=== PATIENT | female | born 1985 | race African-American/Black ===

== ENCOUNTER 2017-05-13 17:43 | Emergency (ER) | payer SELFPAY ==
[2017-05-13 18:45] LABS: #Eosinphils 0.1 thou/uL (0.0-0.7); #Lymphocytes 1.4 thou/uL (1.20-3.40); #Monocytes 0.6 thou/uL (0.11-0.59); #Neutrophils 11.6 thou/uL (1.40-6.50); %Basophils 0.2 % (0.0-1.0); %Eosinophils 0.4 % (0.0-10.0); %Lymphocytes 10.3 % (21.0-51.0); %Monocytes 4.6 % (0.0-10.0); Hematocrit 37.6 % (36.0-47.0); Mean Platelet Volume 8.1 fL (7.4-10.4); Red Blood Cell (RBC) Count 4.08 mill/uL (4.20-5.40); White Blood Cell (WBC) Count 13.8 thou/uL (4.8-10.8)
[2017-05-13 19:06] LABS: ALT (SGPT) 10 U/L (8-55); AST (SGOT) 18 U/L (5-34); Alkaline Phosphatase 65 U/L (40-150); Anion Gap 14 mmol/L (10-20); BUN (Urea Nitrogen) 16 mg/dL (7.0-18.7); Bilirubin, Total 0.6 mg/dL (0.2-1.2); Calc. Creatinine Clearance 0 mL/min (70-130); Calcium 9.8 mg/dL (7.8-10.44); Carbon Dioxide 23 mmol/L (22-29); Chloride 105 mmol/L (98-107); Estimated GFR-MDRD 90; Globulin 3.6 g/dL (2.4-3.5); Lipase 5 U/L (8-78); Protein, Total 8.2 g/dL (6.0-8.3)
[2017-05-13 19:49] LABS: Bilirubin Negative (Negative); Blood, Urine Negative (Negative); Glucose, Urine (Dipstick) Negative (Negative); Ketone, Urine 15 mg/dL (Negative); Nitrite Negative (Negative); Protein, Urine (Dipstick) Negative (Neg-Trace)
[2017-05-13 19:52] LABS: Bacteria/HPF None Seen HPF (None Seen); Hyaline Casts/LPF 0-3 HYALINE CAST LPF (0-3 Hyaline); RBC/HPF 0-3 HPF (0-3); Squamous Epithelial 0-3 HPF (0-3); WBC/HPF 21-50 HPF (0-3)
[2017-05-13] MEDS ORDERED: Ketorolac Tromethamine 30 MG/ML VIAL ONE (19:57)
[2017-05-13] MEDS ORDERED: Ondansetron HCl/PF 4 MG/2 ML Vial ONE (19:57)
--- NOTE | 2017-05-13 22:20 | CT ---
NONCONTRAST ABDOMEN AND PELVIS CT: Indication: Abdominal pain and vomiting. FINDINGS: Noncontrast imaging limits assessment of the solid abdominal organs, bowel, lymph nodes and vasculat ure. There is no evidence of urolithiasis or obstructive uropathy. There are calcifications of the abdome n and pelvis favoring phlebolith. No free air. Mild nonspecific free pelvic fluid is present. Imaged lung bases are clear. Probable bone island involving the proximal femur. There is a well circumscribed lucency involving the right aspect of the L4 vertebral segment which d emonstrates nonaggressive imaging features. IMPRESSION: 1. No evidence of urolithiasis or obstructive uropathy with scattered calcifications in the abdomen and pelvis, likely reflecting phleboliths in light of apparent hydroureteronephrosis. 2. Mild nonspecific free pelvic fluid. Correlate clinically. As necessary, follow up may obtained pelvis ultrasound. POS: [facility]
== END 2017-05-13 22:27 | disposition home or self-care (01) ==
LOC: ERS 17:43
DX: R10.9 Unspecified abdominal pain (principal); F17.210 Nicotine dependence, cigarettes, uncomplicated
CPT/HCPCS: 36415; 74176; 80053; 81003; 81015; 83690; 84703; 85025; 87086; 87480; 87491; 87510; 87591; 87660; 96361; 96374; 96375; J1885; J2405

== ENCOUNTER 2017-11-13 20:41 | Emergency (ER) | payer SELFPAY ==
[2017-11-13 21:19] LABS: Pregnancy Test - Urine (BHCG) POSITIVE (Negative); Pregu Control Background? CLEAR/WHITE (CLR/WHITE); Pregu Control Bar Appear? YES (CONTROL BAR); Specific Gravity 1.014 (1.002-1.036)
== END 2017-11-13 21:41 | disposition home or self-care (01) ==
LOC: ERS 20:41
DX: O21.9 Vomiting of pregnancy, unspecified (principal); O99.331 Smoking (tobacco) complicating pregnancy, first trimester; F17.210 Nicotine dependence, cigarettes, uncomplicated; Z71.6 Tobacco abuse counseling; Z3A.01 Less than 8 weeks gestation of pregnancy
CPT/HCPCS: 81025; 99406

== ENCOUNTER 2018-02-25 12:54 | Day surgery (SDC) | payer SELFPAY ==
[2018-02-25 13:38] VITALS: BMI 29.0
[2018-02-25 13:58] VITALS: BP 140/61; TEMP 98.9
[2018-02-25 15:25] LABS: Bilirubin Negative (Negative); Blood, Urine Negative (Negative); Clarity CLEAR (Clear); Glucose, Urine (Dipstick) Negative (Negative); Leukocyte Moderate (Negative); Nitrite Negative (Negative); Protein, Urine (Dipstick) Trace mg/dL (Neg-Trace); Specific Gravity, Urine 1.026 (1.002-1.036); pH, Urine 7.5 (5.0-9.0)
[2018-02-25 15:28] LABS: Bacteria/HPF None Seen HPF (None Seen); Hyaline Casts/LPF 4-6 HYALINE CAST LPF (0-3 Hyaline); Pathc Cast-AUWi Flag 0.72 (0-2.49); RBC/HPF 0-3 HPF (0-3); Squamous Epithelial 0-3 HPF (0-3); WBC/HPF 21-50 HPF (0-3)
[2018-02-25 15:42] LABS: Amphetamine Not Detected (NotDetected); Barbiturates Screen Not Detected (NotDetected); Benzodiazepine Screen Not Detected (NotDetected); Cocaine Metabolite Screen Not Detected (NotDetected); Medtox Control Line Valid? VALID (VALID); Medtox Reader # READER 1; Methadone Not Detected (NotDetected); Methamphetamine Not Detected (NotDetected); Opiate Screen Not Detected (NotDetected); Oxycodone Screen Not Detected (NotDetected); Phencyclidine (PCP) Not Detected (NotDetected); THC/Cannabinoid Screen Not Detected (NotDetected); Tricyclic Screen Not Detected (NotDetected)
[2018-02-25 16:42] LABS: Hemoglobin 9.7 g/dL (12.0-16.0); Mean Corpuscular HGB CONC 34.4 g/dL (32.0-36.0); Mean Corpuscular Hemoglobin 32.1 pg (27.0-31.0); Mean Corpuscular Volume 93.2 fL (78.0-98.0); Platelet Count 203 thou/uL (130-400); RBC Distribution Width 11.6 % (11.5-14.5); Red Blood Cell (RBC) Count 3.02 mill/uL (4.20-5.40); White Blood Cell (WBC) Count 7.5 thou/uL (4.8-10.8)
--- NOTE | 2018-02-25 16:50 | ULT ---
SONOGRAM OBSTETRIC COMPLETE 02/25/18 HISTORY: evaluation. Second trimester gestation. FINDINGS: Multiple transabdominal sonographic views of the gravid uterus show a single intrauterine gestation i n variable presentation. Grade I placenta is posterior. Amniotic fluid is within normal limits. Cervi x is closed and 4.4 cm. No gross intracranial abnormalities. Three vessel cord shows normal insertion . spine and kidneys are intact as visualized. Four chamber heart shows motion at 139 beats per minute. Measurements are as follows: Biparietal diameter 20 weeks, 5 days Head circumference 20 weeks, 6 days Abdominal circumference 20 weeks, 4 days Femur length 20 weeks, 2 days Estimated date of delivery based on today's sonogram is 07/11/18. Hadlock percentile 57%. IMPRESSION: Single viable intrauterine gestation with estimated gestational age based on today's sonogram of 20 w eeks, 4 days. POS: [facility]
[2018-02-25 17:05] LABS: ALT (SGPT) Less than 7 U/L (8-55); AST (SGOT) 13 U/L (5-34); Albumin 3.7 g/dL (3.5-5.0); Alkaline Phosphatase 52 U/L (40-150); Anion Gap 10 mmol/L (10-20); BUN (Urea Nitrogen) 5 mg/dL (7.0-18.7); Bilirubin, Total 0.4 mg/dL (0.2-1.2); Calc. Creatinine Clearance 181 mL/min (70-130); Calcium 9.1 mg/dL (7.8-10.44); Carbon Dioxide 24 mmol/L (22-29); Chloride 107 mmol/L (98-107); Estimated GFR-MDRD Greater than 90; Globulin 3.1 g/dL (2.4-3.5); Glucose 76 mg/dL (70-105); Potassium 3.5 mmol/L (3.5-5.1); Protein, Total 6.8 g/dL (6.0-8.3); Sodium 137 mmol/L (136-145)
[2018-02-25 17:32] LABS: HBSAg Index 0.18 S/CO (0-0.99); HIV (1/2) Antibody/Antigen Non-Reactive (NonReactive); HIV 1/2 INDEX 0.11 S/CO (<1.00); Hep B Surf Ag Non-Reactive S/CO (NonReactive)
--- NOTE | 2018-02-25 19:42 | HP ---
HISTORY OF PRESENT ILLNESS: The patient is a 33-year-old G8, P5 female with an intrauterine pregnanc y stated at around 20 weeks, who presents to Labor and Delivery with concerns about early delivery. The patient up to now has had little to no care, but is planning to establish care with Dr. Ray Roman. She reports a history of delivery with 4 of her previous pregnancies. The ear liest at 6 months due to premature rupture of membranes and subsequent prior pregnancies around 35-36 weeks, induced for other medical reasons. The patient reports that she has been having "[place] Hic ks" contractions. She also reports that she has been having headaches off and on nearly daily for th e last month or so and with light sensitivity and some nausea. She denies any headaches currently at the time of my evaluation. The patient did have an appointment this morning to see her primary OB, but was unable to keep that appointment and has a rescheduled appointment for Saturday. The patient de nies any fever, current headache, and chest pain. She does report some shortness of breath that she associates with her past history of smoking, but is not a significant from a day to day standpoint. The patient reports some nausea. She reports vomiting on occasion associated with the . Sh e denies diarrhea or constipation. She denies any new rashes. She does have some low back pain that she attributes to the . She denies any vaginal bleeding or leakage of fluid. She denies u rinary urgency or frequency. She does report some what she calls [place] Reza contractions. PAST MEDICAL HISTORY: History of pre-term deliveries. History of preeclampsia. PAST SURGICAL HISTORY: Negative. SOCIAL HISTORY: The patient reports rare use of alcohol early in the with the last drink i n October. She does report tobacco use, but has since discontinued use since connecting her children's asthma to tobacco. The patient denies any drug use. ALLERGIES: IODINE. MEDICATIONS: None. OB LABORATORY DATA: Not drawn yet. REVIEW OF SYSTEMS: Per HPI. PHYSICAL EXAMINATION: VITAL SIGNS: Blood pressure 131/66, heart rate of 83, respiratory rate of 20, satting 100% on room a ir, temperature 98.9. GENERAL: She appears to be in no acute distress. She is alert and oriented, cooperative and pleasan t to interact with. HEENT: Head is normocephalic, atraumatic. LUNGS: Clear to auscultation bilaterally. HEART: Regular rate and rhythm. ABDOMEN: Soft and nontender. EXTREMITIES: Nontender with minimal edema. There is no CVA tenderness. No paravertebral tenderness . She does have some SI joint tenderness on the left. Doppler heart tones were in the 140s. Tocometer did not show any contraction pattern. LABORATORY STUDIES: UA, she has a negative drug screen. Hepatitis B surface antigen is negative, HI V is nonreactive, blood type is A positive, antibody screen is negative. Urine shows moderate leukoc yte esterase with 21-50 white blood cells, 0-3 squamous cells and no bacteria seen. CBC shows a whit e count of 7.5, hemoglobin of 9.7, hematocrit 28.2, platelets of 203,000. CMP within normal limits. A ultrasound was also performed to establish dates and to get cervical length. The patient wa s noted to have a cervical length of 4.4 cm with a fetus measuring 20 weeks and 4 days, which is cons istent with her stated due date and 57th percentile for growth. Cervical exam per nursing staff is gold yousif. ASSESSMENT AND PLAN: The patient is a 33-year-old G8, P5 female, who presented with concerns of viraj y delivery and no care, was seen and evaluated and found to have a urinary tract infection. Her initial labs have been drawn GC chlamydia. These findings and results can be rev iewed by her primary OB, Dr. Ray Roman, when they have their first appointment on Saturday. The pat ient has been given reassurance. She has been provided with a prescription of Macrobid to be taken t wice a day for the next 7 days. The patient's headaches clinically sound like migraines, though she has nothing currently. She can follow up with her primary OB on managing this should they persist.
[2018-02-25 21:15] LABS: Syphilis Antibody Nonreactive (Nonreactive); Syphilis Antibody Index 0.07 S/CO (<1.00 Non-Reactive)
== END 2018-02-25 17:40 | disposition home or self-care (01) ==
LOC: L&D/OP 12:54
PROVIDERS: ATTEND Obstetrics & Gynecology
DX: O23.42 Unspecified infection of urinary tract in pregnancy, second trimester (principal); Z3A.20 20 weeks gestation of pregnancy; Z91.041 Radiographic dye allergy status; Z87.891 Personal history of nicotine dependence
CPT/HCPCS: 36415; 51701; 76805; 80053; 80306; 81001; 85027; 86762; 86780; 86850; 86900; 86901; 87340; 87389; 99283

== ENCOUNTER 2018-04-06 10:25 | Day surgery (SDC) | payer MEDICAID, OTHER, SELFPAY ==
[2018-04-06 11:31] VITALS: BMI 28.3
[2018-04-06 11:43] LABS: #Eosinphils 0.1 thou/uL (0.0-0.7); #Lymphocytes 1.5 thou/uL (1.20-3.40); #Monocytes 0.3 thou/uL (0.11-0.59); #Neutrophils 3.7 thou/uL (1.40-6.50); %Basophils 0.8 % (0.0-1.0); %Eosinophils 0.9 % (0.0-10.0); %Lymphocytes 26.3 % (21.0-51.0); %Monocytes 5.9 % (0.0-10.0); %Neutrophils 66.1 % (42.0-75.0); Hemoglobin 10.3 g/dL (12.0-16.0); Mean Corpuscular HGB CONC 34.7 g/dL (32.0-36.0); Mean Corpuscular Volume 92.2 fL (78.0-98.0); Mean Platelet Volume 7.5 fL (7.4-10.4); Platelet Count 210 thou/uL (130-400); Red Blood Cell (RBC) Count 3.22 mill/uL (4.20-5.40); White Blood Cell (WBC) Count 5.6 thou/uL (4.8-10.8)
[2018-04-06 12:05] LABS: ALT (SGPT) Less than 7 U/L (8-55); AST (SGOT) 13 U/L (5-34); Albumin 3.6 g/dL (3.5-5.0); Alkaline Phosphatase 57 U/L (40-150); Anion Gap 9 mmol/L (10-20); BUN (Urea Nitrogen) 7 mg/dL (7.0-18.7); Bilirubin, Total 0.5 mg/dL (0.2-1.2); Calc. Creatinine Clearance 145 mL/min (70-130); Calcium 8.8 mg/dL (7.8-10.44); Carbon Dioxide 24 mmol/L (22-29); Chloride 108 mmol/L (98-107); Estimated GFR-MDRD Greater than 90; Globulin 3.1 g/dL (2.4-3.5); Glucose 80 mg/dL (70-105); Potassium 3.1 mmol/L (3.5-5.1); Protein, Total 6.7 g/dL (6.0-8.3); Sodium 138 mmol/L (136-145)
--- NOTE | 2018-04-06 12:41 | PDOC.LDHP ---
Labor and Delivery H&P Chief complaint: other (Vaginal bleeding) HPI: 33 year old at 26.0 wks by reported LMP/1T sono that presents with complaints of bilateral leg cramping, contractions, and vaginal bleeding. Patient states she has been having bilateral leg cramping since yesterday. She also endorses intermittent contractions which she states are "false contractions ". Patient reports a one day history of vaginal spotting. She says the last several times she has used the restroom, she has noted blood on the toilet paper. She states the blood is faint red. Patient denies dysuria, fever, headache, vision changes. Patient has poor care. She was last seen in [place] during first trimester. Currently, she is homeless and lives in homeless custodial. She has no access to phone. Patient states she was supposed to initially follow with Dr. Roman, but she never showed up to her appointments. She is scheduled to follow with [facility] on 04/10/2018. ROS: General: Denies fever or chills HEENT: Denies headache or scotoma Resp: Denies shortness of breath or cough Card: Denies chest pain or palpitations. Endorses cardiac history of "hole in the heart" for which she has been told she will need surgery. : Denies dysuria. Endorses urinary frequency GI: Denies constipation or diarrhea. Current gestational age (weeks): 26 Due date: 07/13/18 Dating criteria: last menstrual period, first trimester ultrasound Grav: 9 Para: 5 OB History Details: 1. Hx of Pre-E in prior 2. Hx of GDM 3. Hx of gHTN 4. Poor care 5. Hx of UTI in current , not adequately treated 6. Hx of PTL Current complications: other (Has no PNC; currently has elevated BP) Past Medical History: 1. Heart abnormality patient describes as "hole in heart". Per patient, patient needs surgery on heart per Dr. Johnston. She refuses to follow up. 2. Homelessness: currently living in homeless custodial Current medications: none Previous surgical history: none Social history: none - Physical Exam Abnormal vital signs: BP 147/87 General: NAD, resting Lungs: CTAB Abdomen: gravid Extremeties: no edema FHT: category 1, variability present [place] contractions every: None - Assessment 33 year old at 26.0 wks by LMP/1T with ANDREEA of 07/13/2018 that presents with vaginal bleeding and bilateral lower extremity cramping 1. Vaginal bleeding - Described as blood on toilet paper when wiping - UA pending - OB ultrasound pending - fibronectin pending 2. Elevated BP with history of Pre-E and gHTN - BP 147/87 - Pre-E labs pending 3. Hx of Pre-E - Pre-E labs pending - BP 147/87 4. Hx of GDM - FBG 80 5. Hx of PTL - fibronectin pending <Emeli Dempsey - Last Filed: 04/06/18 13:00> - OB Labs Additional Labs: Laboratory Results - last 24 hr 04/06/18 04/06/18 04/06/18 11:35 11:35 11:45 WBC 5.6 RBC 3.22 L Hgb 10.3 L Hct 29.7 L MCV 92.2 MCH 32.0 H MCHC 34.7 RDW 11.0 L Plt Count 210 MPV 7.5 Neutrophils % 66.1 Lymphocytes % 26.3 Monocytes % 5.9 Eosinophils % 0.9 Basophils % 0.8 Neutrophils # 3.7 Lymphocytes # 1.5 Monocytes # 0.3 Eosinophils # 0.1 Basophils # 0.0 Sodium 138 Potassium 3.1 L Chloride 108 H Carbon Dioxide 24 Anion Gap 9 L BUN 7 Creatinine 0.65 Estimated GFR (MDRD) Greater than 90 Glucose 80 Calcium 8.8 Total Bilirubin 0.5 AST 13 ALT Less than 7 L Alkaline Phosphatase 57 Serum Total Protein 6.7 Albumin 3.6 Globulin 3.1 Albumin/Globulin Ratio 1.2 U Random Total Protein 14 Urine Creatinine 207.52 H Fibronectin 04/06/18 12:25 WBC RBC Hgb Hct MCV MCH MCHC RDW Plt Count MPV Neutrophils % Lymphocytes % Monocytes % Eosinophils % Basophils % Neutrophils # Lymphocytes # Monocytes # Eosinophils # Basophils # Sodium Potassium Chloride Carbon Dioxide Anion Gap BUN Creatinine Estimated GFR (MDRD) Glucose Calcium Total Bilirubin AST ALT Alkaline Phosphatase Serum Total Protein Albumin Globulin Albumin/Globulin Ratio U Random Total Protein Urine Creatinine Fibronectin Negative <Fartun Mayfield - Last Filed: 04/06/18 13:23> Allergies/Adverse Reactions: Allergies Allergy/AdvReac Type Severity Reaction Status Date / Time iodine Allergy Severe Anaphylaxis Verified 04/06/18 11:07 Attending Addendum - Attending Addendum Date/Time: 04/06/18 1320 I personally evaluated the patient and discussed the management with Dr. Dempsey. I agree with the History, Examination, Assessment and Plan documented above with any addition or exceptions noted below. US was cancelled, as she had one last month. FFN negative. PreE labs wnl. Low potassium (3.1) - will give PO replacement. D/c home with precautions. <Fartun Mayfield - Last Filed: 04/06/18 13:23>
[2018-04-06] MEDS ORDERED: Potassium Chloride 20 MEQ TAB PO SCH (13:00)
[2018-04-06 13:01] LABS: Creatinine, Urine 207.52 mg/dL (47-110)
[2018-04-06 13:11] LABS: FFN Internal QC Analyzer PASS (PASS); FFN Internal QC Cassette PASS (PASS); Fetal Fibronectin Negative (Negative)
[2018-04-06 14:03] LABS: Bilirubin Negative (Negative); Blood, Urine Negative (Negative); Clarity CLEAR (Clear); Glucose, Urine (Dipstick) Negative (Negative); Leukocyte Moderate (Negative); Nitrite Negative (Negative); Protein, Urine (Dipstick) Negative (Neg-Trace); Specific Gravity, Urine 1.022 (1.002-1.036)
[2018-04-06 14:06] LABS: Bacteria/HPF 1+ HPF (None Seen); Pathc Cast-AUWi Flag 0.29 (0-2.49); Squamous Epithelial 0-3 HPF (0-3)
[2018-04-06 14:21] LABS: Hyaline Casts/LPF 4-6 HYALINE CAST LPF (0-3 Hyaline); RBC/HPF 0-3 HPF (0-3)
[2018-04-06 14:22] LABS: Trichomonas/HPF 1+ HPF (None Seen)
== END 2018-04-06 13:29 | disposition home or self-care (01) ==
LOC: L&D/OP 10:25
PROVIDERS: ATTEND Family Medicine
DX: O46.92 Antepartum hemorrhage, unspecified, second trimester (principal); O99.89 Other specified diseases and conditions complicating pregnancy, childbirth and the puerperium; Z3A.26 26 weeks gestation of pregnancy
CPT/HCPCS: 36415; 80053; 81001; 82570; 82731; 84156; 85025; 99284

== ENCOUNTER 2018-05-05 14:55 | Day surgery (SDC) | payer OTHER ==
[2018-05-05 15:48] VITALS: BP 128/80; TEMP 98; BMI 32.1
--- NOTE | 2018-05-05 17:17 | PDOC.FPROB ---
Addendum entered and electronically signed by Lloyd Andrade DO 05/05/18 18: 09: Upper Level Addendum: ILloyd, agree with the above history, PE, A /P with exceptions noted below: 33 yr @ 30.3 wk by 20.4 wk sono (ANDREEA 07/11/18) with inconsistent care presents for vaginal spotting and foul smelling discharge and abdominal cramping for last month. Pt was previously evaluated and treated for UTI and trich two weeks ago for 7 days; however, has not taken medications regularly. Reports good FM, denies LOF and contractions. Reports some bright blood when she wipes, vaginal discharge and occasional cramping. 1) sIUP: - pos movement, reactive NST - recommend OP f/u with primary OB provider 2) Vaginal Bleeding/Discharge: -possibly 2/2 trich vs uti; however, significant prolapsed internal hemorrhoids with possibly external hemorrhoids as well could be causing blood tinged toilet paper. Will check VP3, UA, GCC. Spec exam revealed erythematous, closed cervix with thick, white discharge and no bleeding present. Fundal placenta by bs US. If pos VP3 give 2gm flagyl X1 and f/u OP. 3) h/o pre-e: normotensive and currently asymptomatic, op workup for pre-e negative, recommend f/u with PCP, cont daily asa 4) Poor care: pt has h/o homelessness, HepC and quant gold negative. Pt reports she is staying with a friend and feels safe with the friend she is staying with. Original Note: FMR OB H&P: HPI - History of Present Illness Chief Complaint: Vaginal spotting, cramping, foul discharge Indentification: 33 yr @ 30.3 wk by 20.4 wk sono (ANDREEA 07/11/18) History of Present Illness: 33 yr @ 30.3 wk by 20.4 wk sono (ANDREEA 07/11/18) with inconsistent care (homeless) presents for vaginal spotting and foul smelling discharge and abdominal cramping for last month. Patient has been seen here for similar symptoms 1 month ago, and had similar complaint and seen by PCP at [facility] 2 weeks ago. Pt states her foul smelling discharge has gotten worse, and notices spotting from her vagina when wiping. Pt states she also has hemorrhoids and has been very constipated with her Fe pills. No urinary symptoms. No WHITAKER currently. No changes in vision. No nausea/vom. Baby moving well. Denies contractions. Denies LOF. Reports swelling in hands and feet. Pt states that she missed her clinic appointment, pt stated her doctor wasn't there, so she went to the ED to be seen. We called clinic and confirmed that she was late for her appointment. She was diagnosed with trich 2 weeks ago and treated with metronidazole. Pt states she just finished her 7 day course. Primary Care Physician: Dr. 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 Reports smoking infrequently since she was 6, couldn't quantify how many packs per day or week. Reports quitting with each . Denies alcohol or drug use. - Family History Family History: Asthma son DM2 - father HTN - father, mother FMR OB H&P: Medications - Current Home Medications: Medication Instructions Recorded Confirmed Type Vit,Calc76/Iron/Folic 1 tablet PO DAILY 02/25/18 05/05/18 History [Prenatabs Rx Tablet] Allergies/Adverse Reactions: Allergies Allergy/AdvReac Type Severity Reaction Status Date / Time iodine Allergy Severe Anaphylaxis Verified 05/05/18 15:48 FMR OB H&P: ROS - Review of Systems General: reports: weight/appetite/sleep changes (decreased appetite). denies: fever/chills Eyes: reports: scotomas. denies: eye pain, vision changes ENT: denies: nasal congestion, sinus pain/pressure Cardiovascular: reports: palpitation, edema. denies: chest pain Respiratory: reports: shortness of breath. denies: cough, congestion Gastrointestinal: reports: abdominal pain, cramping, nausea, vomiting, constipation, bright red blood, other (dark stools with iron pills). denies: diarrhea Genitourinary (Female): reports: incontinence (stress incontinence). denies: dysuria, hematuria Musculoskeletal: reports: stiffness (leg). denies: arthritis/arthralgias Neurologic: reports: headache (frequent headaches, not new). denies: numbness, weakness Integumentary: denies: itching, rash, lesions Endocrine: reports: heat intolerance Psychological: reports: depression, anxiety (previously treated for depression and anxiety in previous ) FMR OB H&P: Vital Signs - Maternal Vital signs: Vital Signs - First Documented Temp Pulse Resp BP 98.0 F 79 18 128/80 05/05/18 15:19 05/05/18 15:19 05/05/18 15:19 05/05/18 15:19 - Heart Tones Baseline: 135 Variability: moderate Deceleration: absent Category: category 1 [place] contractions every: none FMR OB H&P: Physical Exam - Physical Exam General: NAD, awake, alert and oriented HEENT: normocephalic and atraumatic, PERRLA, grossly normal hearing, normal nasal mucosa, oropharynx clear Neck: supple, no LAD Heart: RRR, normal S1/S2, no murmurs/rubs/gallops, pulses present, no edema General: CTAB, no respiratory distress, good air movement, no wheezing Abdomen: soft, gravid, bowel sound present Neurological: no focal deficit Skin: no rash, good tugor, capillary refill <2 seconds Lymphatic: no unusual bruising or bleeding, no purpura, no petechia Psychiatric: intact recent and remote memory, normal mood and affect - Pelvic Exam Vulva: normal hair distribution, appropriate candice stage Deviation from normal: pedunculated mass posterior to left labia, prolapsed internal hemorrhoids Cervix: no masses, no lesions, no blood Deviation from normal: foul-smelling yellow discharge. +white clumps in discharge SVE: 0/25%/-3 FMR OB H&P: A/P - Problem List (1) [place] vaginitis Status: Acute Code(s): B37.3 - CANDIDIASIS OF VULVA AND VAGINA (2) Foul smelling vaginal discharge Status: Acute Code(s): N89.8 - OTHER SPECIFIED NONINFLAMMATORY DISORDERS OF VAGINA (3) Vaginal spotting Status: Acute Code(s): N93.9 - ABNORMAL UTERINE AND VAGINAL BLEEDING, UNSPECIFIED (4) Status: Acute Discussion: Date/Time: 05/05/181708 33 yr @ 30.3 wk by 20.4 wk [place] (ANDREEA 07/11/18) with inconsistent care (homeless) presents for possible STI. Concern for STI -Recently treated for trichomonas, states she took full course but missed a few days here and there -foul smelly discharge, hx of STIs. -sterile speculum exam: white chunky discharge on vaginal exam, smelly yellow discharge, no bleeding from cervix, prominent hemorrhoids -VP3, UA, GCC, UDS pending -Treat accordingly sIUP -Fundal placenta on bed side ultrasound -SVE: closed, thick, high -Reactive NST -Baby moving well, no contractions, no LOF -Hx of Pre-E: aspirin daily Poor PNC -Late to care, missed appointment today. Pt is homeless, living with a friend currently. -quant gold and Hep c negative per clinic records -Did not get formal anatomy US that mentioned at her last clinic visit note, per patient Hx of Pre-E -Pressure not elevated today. Recent work up for Pre-E was negative. Denies WHITAKER currently, no swelling in hands/feet This H&P was discussed with Dr. Davila who agree with the above documentation and plan. Attending Addendum - Attending Addendum Date/Time: 05/05/181715 I personally evaluated the patient and discussed the management with Dr. Duran and Dr. Andrade I agree with the History, Examination, Assessment and Plan documented above with any addition or exceptions noted below. 33 yr @ 30.3 wk by 20.4 wk [place] presents for evaluation of vaginal discharge. 1. vaginal d/c: Recently dx with trich. Incomplete treatment per patient. VP3, GC, CT ordered. VP3 negative. UA negative. 2. External/internal hemrrhoids: Follow up. No evidence of thrombosis. Topical treatment needed. 3. Incomplete/poor care 4. Homeless: Staying with friend. Feels safe. Risk factor labs negative. CM consult needed. 5. hx of PTD: Too late for 17-OHP. No contractions on monitor. 6. hx of preE: Asymptomatic. BP normotensive. Recommend daily ASA. Ok to d/c to home. Needs follow up with PCP this week. Mirna
[2018-05-05 18:53] LABS: Bilirubin Negative (Negative); Blood, Urine Negative (Negative); Clarity CLEAR (Clear); Glucose, Urine (Dipstick) Negative (Negative); Leukocyte Small (Negative); Nitrite Negative (Negative); Protein, Urine (Dipstick) Negative (Neg-Trace); Specific Gravity, Urine 1.023 (1.002-1.036)
[2018-05-05 18:56] LABS: Bacteria/HPF None Seen HPF (None Seen); Hyaline Casts/LPF 4-6 HYALINE CAST LPF (0-3 Hyaline); Pathc Cast-AUWi Flag 0.72 (0-2.49); RBC/HPF 0-3 HPF (0-3); Squamous Epithelial 0-3 HPF (0-3)
[2018-05-05 19:03] LABS: Amphetamine Not Detected (NotDetected); Barbiturates Screen Not Detected (NotDetected); Benzodiazepine Screen Not Detected (NotDetected); Cocaine Metabolite Screen Not Detected (NotDetected); Medtox Control Line Valid? VALID (VALID); Medtox Reader # READER 4; Methadone Not Detected (NotDetected); Methamphetamine Not Detected (NotDetected); Opiate Screen Not Detected (NotDetected); Oxycodone Screen Not Detected (NotDetected); Phencyclidine (PCP) Not Detected (NotDetected); THC/Cannabinoid Screen Not Detected (NotDetected); Tricyclic Screen Not Detected (NotDetected)
[2018-05-06 22:45] LABS: Chlamydia by PCR Not Detected (NotDetected); GC by PCR Not Detected (NotDetected)
== END 2018-05-05 19:35 | disposition home health service (06) ==
LOC: L&D/OP 14:55
PROVIDERS: ATTEND Obstetrics & Gynecology
DX: O99.89 Other specified diseases and conditions complicating pregnancy, childbirth and the puerperium (principal); N89.8 Other specified noninflammatory disorders of vagina; O26.853 Spotting complicating pregnancy, third trimester; O99.613 Diseases of the digestive system complicating pregnancy, third trimester; K64.8 Other hemorrhoids; O98.813 Other maternal infectious and parasitic diseases complicating pregnancy, third trimester; B37.3 Candidiasis of vulva and vagina; O09.33 Supervision of pregnancy with insufficient antenatal care, third trimester; O24.419 Gestational diabetes mellitus in pregnancy, unspecified control; Z79.899 Other long term (current) drug therapy; Z91.041 Radiographic dye allergy status; Z91.14 Patient's other noncompliance with medication regimen; Z3A.30 30 weeks gestation of pregnancy
CPT/HCPCS: 76815; 80306; 81003; 81015; 87480; 87491; 87510; 87591; 87660; 99285

== ENCOUNTER 2018-05-14 17:29 | Day surgery (SDC) | payer OTHER ==
[2018-05-14 18:46] VITALS: BP 139/77; TEMP 99.1
[2018-05-14 18:47] VITALS: BMI 31.4
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
[2018-05-14 19:56] LABS: #Eosinphils 0.1 thou/uL (0.0-0.7); #Lymphocytes 1.7 thou/uL (1.20-3.40); #Monocytes 0.4 thou/uL (0.11-0.59); #Neutrophils 4.7 thou/uL (1.40-6.50); %Basophils 0.3 % (0.0-1.0); %Eosinophils 0.7 % (0.0-10.0); %Monocytes 5.9 % (0.0-10.0); Hemoglobin 9.7 g/dL (12.0-16.0); Mean Corpuscular HGB CONC 33.6 g/dL (32.0-36.0); Mean Corpuscular Volume 92.3 fL (78.0-98.0); Platelet Count 167 thou/uL (130-400); Red Blood Cell (RBC) Count 3.15 mill/uL (4.20-5.40); White Blood Cell (WBC) Count 6.9 thou/uL (4.8-10.8)
[2018-05-14 20:40] LABS: ALT (SGPT) Less than 7 U/L (8-55); Albumin 3.5 g/dL (3.5-5.0); Alkaline Phosphatase 59 U/L (40-150); Anion Gap 12 mmol/L (10-20); BUN (Urea Nitrogen) 7 mg/dL (7.0-18.7); Bilirubin, Total 0.7 mg/dL (0.2-1.2); Calc. Creatinine Clearance 180 mL/min (70-130); Calcium 8.9 mg/dL (7.8-10.44); Carbon Dioxide 22 mmol/L (22-29); Chloride 106 mmol/L (98-107); Estimated GFR-MDRD Greater than 90; Globulin 3.1 g/dL (2.4-3.5); Glucose 71 mg/dL (70-105); Potassium 3.3 mmol/L (3.5-5.1); Protein, Total 6.6 g/dL (6.0-8.3); Sodium 137 mmol/L (136-145); Uric Acid 4.1 mg/dL (2.6-6.0)
--- NOTE | 2018-05-14 21:12 | ULT ---
OB ULTRASOUND BIOPHYSICAL PROFILE ULTRASOUND 05/14/18 CLINICAL HISTORY: Evaluation of anatomy and history of maternal chronic hypertension. FINDINGS: Live intrauterine gestation is present with cardiac activity documented at 128 beats per minute . The fetus is demonstrated in a cephalic lie and placenta is located primarily in a posterior locati on without evidence of previa. NORBERT is calculated at 11.2 cm. On the basis of ultrasound imaging, halle mated gestational age is 32 weeks, 5 days placing estimated date of delivery by ultrasound at 8. Estimated weight is 2059 grams placing the fetus at the 75th percentile by Hadlock criteria. BIOPHYSICAL PROFILE: tone - 2/2. breathing - 2/2. movement - 2/2. Amniotic fluid - 2/2. Biophysical profile score 8/8. Dedicated anatomic survey not performed. IMPRESSION: 1. Single live intrauterine gestation with estimated gestational age by ultrasound at 32 weeks, 5 days. 2. Biophysical profile score 8/8. 3. As necessary, continued imaging following may be obtained. POS: [place]
[2018-05-14] MEDS ORDERED: Acetaminophen 500 MG TAB PO SCH (22:30)
[2018-05-14] MEDS ORDERED: Potassium Chloride 20 MEQ TAB PO SCH (23:00)
[2018-05-14 23:01] LABS: Creatinine, Urine 137.96 mg/dL (47-110); Protein, Urine Random Quant Less than 10 mg/dL (1-14)
[2018-05-14 23:02] LABS: AST (SGOT) 17 U/L (5-34)
[2018-05-14] MEDS ORDERED: Betamet Acet/Betamet Na Ph 30 MG/5 ML VIAL ONE (23:09)
[2018-05-14] MEDS ORDERED: Betamet Acet/Betamet Na Ph 30 MG/5 ML VIAL IM SCH (23:30)
== END 2018-05-14 23:50 | disposition home or self-care (01) ==
LOC: L&D/OP 17:29
PROVIDERS: ATTEND Emergency Medicine
DX: O99.89 Other specified diseases and conditions complicating pregnancy, childbirth and the puerperium (principal); R01.1 Cardiac murmur, unspecified; R03.0 Elevated blood-pressure reading, without diagnosis of hypertension; Z91.041 Radiographic dye allergy status; O99.013 Anemia complicating pregnancy, third trimester; D64.9 Anemia, unspecified; Z3A.31 31 weeks gestation of pregnancy
CPT/HCPCS: 36415; 76805; 76819; 80053; 82570; 84156; 84550; 85025; 96372; 99284; J0702

== ENCOUNTER 2018-05-15 22:10 | Day surgery (SDC) | payer OTHER ==
[2018-05-15 22:42] VITALS: BMI 31.4
[2018-05-15] MEDS ORDERED: Betamet Acet/Betamet Na Ph 30 MG/5 ML VIAL IM SCH (22:45)
== END 2018-05-15 23:00 | disposition home or self-care (01) ==
LOC: L&D/OP 22:10
PROVIDERS: ATTEND Family Medicine
DX: Z29.8 Encounter for other specified prophylactic measures (principal); Z91.041 Radiographic dye allergy status; Z79.82 Long term (current) use of aspirin; Z79.899 Other long term (current) drug therapy
CPT/HCPCS: 96372

== ENCOUNTER 2018-05-19 15:17 | Observation (INO) | payer OTHER ==
[2018-05-19 16:07] VITALS: BMI 26.6
[2018-05-19] MEDS ORDERED: Acetaminophen 500 MG TAB PO SCH (17:00)
--- NOTE | 2018-05-19 17:05 | PDOC.FPROB ---
FMR OB H&P: HPI - History of Present Illness Chief Complaint: Chest pain, Back pain Indentification: 33 year old History of Present Illness: 33 year old at 32.3 wks by 20.4 wk [place] presents with chest pain since around 6:00 AM. She states the chest pain is located on the right side of the chest. It does not radiate. It is not associated with diaphoresis or nausea. Patient states she has not had this pain previously. She does report being anxious. She had contractions all night until about 6:00 AM. The contractions resolved except when walking. Patient also endorses lower back pain and pelvic pain. She states the back pain is worse when standing. Patient denies dysuria, vaginal bleeding, vaginal discharge, or LoF. She has had intermittent contractions throughout . Primary Care Physician: MARCIN Dempsey FMR OB H&P: Current - Care : 9 Para: [id number] Gestational age: 32.3 wks Due date: 07/11/2018 Dating Criteria: 20.4 wk sono - OB Labs Antibody Screen: negative HIV: negative RPR: negative HepBsAg: negative Rubella: immune Gonorrhea: negative Chlamydia: negative GBS: unknown Additional labs: Trichomonas positive: no GABRIELLA available FMR OB H&P: History - OB History OB History: Hx Pre-E, Hx gHTN, Hx GDM Anemia of , gHTN in current , Trichomonas infection with no GABRIELLA - Social History Social History: Homeless, recently living in correction. She does not care for all of her living children. All but her youngest live with other family members. FMR OB H&P: Medications - Current Home Medications: Medication Instructions Recorded Confirmed Type Aspirin [Low Dose Aspirin EC] 81 mg PO DAILY 05/19/18 05/19/18 History Ferrous Sulfate 325 mg PO BID 05/19/18 05/19/18 History Vit,Calc76/Iron/Folic 1 tablet PO DAILY 05/19/18 05/19/18 History [Pnv 29-1 Tablet] Allergies/Adverse Reactions: Allergies Allergy/AdvReac Type Severity Reaction Status Date / Time iodine Allergy Severe Anaphylaxis Verified 05/19/18 16:40 FMR OB H&P: ROS - Review of Systems General: reports: fatigue. denies: fever/chills, weight/appetite/sleep changes Eyes: denies: vision changes, scotomas ENT: denies: nasal congestion, rhinorrhea, sinus pain/pressure, ear pain, sore throat Cardiovascular: reports: chest pain. denies: palpitation, edema, orthopnea Respiratory: reports: shortness of breath, exercise intolerance. denies: cough Gastrointestinal: denies: abdominal pain, indigestion, nausea, vomiting, diarrhea, constipation, bright red blood Genitourinary (Female): reports: polyuria, contractions, vaginal pressure. denies: incontinence, dysuria, vaginal discharge, vaginal bleeding Musculoskeletal: denies: pain, stiffness, tenderness, redness, swelling Neurologic: denies: numbness, syncope, weakness, loss of counsciousness Integumentary: denies: rash, lesions Endocrine: reports: polyuria Hematologic/Lymphatic: denies: prolonged or excessive bleeding Psychological: reports: anxiety FMR OB H&P: Vital Signs - Maternal Vital signs: BP 141/80 on presentation HR nml Afebrile - Heart Tones Baseline: 140 Variability: moderate Acceleration: present Deceleration: absent Category: category 1 [place] contractions every: None FMR OB H&P: Physical Exam - Physical Exam General: NAD, awake, alert and oriented HEENT: normocephalic and atraumatic, MMM, conjunctiva clear, no scleral icterus , grossly normal vision, grossly normal hearing Neck: supple Heart: RRR Deviation from normal: 3/6 systolic blowing murmur best heard over pulmonic region General: CTAB, no respiratory distress, no wheezing Abdomen: soft, gravid, non-tender Musculoskeletal: pulses present Skin: no rash, good tugor, capillary refill <2 seconds Lymphatic: no unusual bruising or bleeding, no purpura Psychiatric: intact recent and remote memory, good judgement and insight, normal mood and affect FMR OB H&P: A/P - Problem List (1) Gestational HTN Current Visit: Yes Status: Acute Code(s): O13.9 - GESTATIONAL HTN W/O SIGNIFICANT PROTEINURIA, UNSP TRIMESTER Assessment and Plan: Elevated BP on several admissions and in clinic Patient asymptomatic BP on presentation to L&D 141/80, BP uptrended to SBP 180, but came down to 150' s with no intervention Most recent SBP 148 Concern for Pre-E superimposed on cHTN; Pre-E labs normal including spot urine protein/creatinine Will admit to L&D for observation; will obtain 24 hour urine protein Will start patient on low dose labetolol BID for better BP control Patient without contractions; history of deliveries - has received steroids (2) Systolic murmur Current Visit: No Status: Acute Code(s): R01.1 - CARDIAC MURMUR, UNSPECIFIED Assessment and Plan: Etiology unknown Will call Dr. Oh office tomorrow morning for records EKG performed in ED for chest pain; NSR Chest pain resolved with PO fluids and tylenol Disposition: Observation in L&D Discussion: Date/Time: 05/19/18 4180 This H&P was discussed with [Enrique] and [Deonte] who agree with the above documentation and plan. Signature: Emeli Dempsey DO PGY-2 Attending Addendum - Attending Addendum Date/Time: 05/19/18 9294 I personally evaluated the patient and discussed the management with Dr. Dempsey I agree with the History, Examination, Assessment and Plan documented above with any addition or exceptions noted below. Symptoms largely resolved since admission. Old entries in EMR show she received steroids X 2 last week. Systolic murmur noted, but does not appear to be hemodynamically significant at this time. Prior echo shows no VSD/ASD. Recommend labetolol, cardiology records & PreE workup. N.B. Patient is essentially homeless. Unclear who is caring for her other children. software engineer web services involvement will be important. Likely CPS post- . Date/Time: 05/20/18 9367 I personally evaluated the patient and discussed the management with Dr. Zamudio at time of admission yesterday. I agree with the History, Examination, Assessment and Plan documented above with any addition or exceptions noted below.
[2018-05-19 17:35] LABS: #Basophils 0.1 thou/uL (0.0-0.2); #Eosinphils 0.1 thou/uL (0.0-0.7); #Lymphocytes 1.8 thou/uL (1.20-3.40); #Monocytes 0.7 thou/uL (0.11-0.59); #Neutrophils 4.5 thou/uL (1.40-6.50); %Basophils 0.8 % (0.0-1.0); %Eosinophils 1.1 % (0.0-10.0); %Lymphocytes 25.6 % (21.0-51.0); %Neutrophils 62.6 % (42.0-75.0); Mean Corpuscular HGB CONC 33.1 g/dL (32.0-36.0); Mean Corpuscular Hemoglobin 30.8 pg (27.0-31.0); Mean Platelet Volume 7.4 fL (7.4-10.4); Platelet Count 231 thou/uL (130-400); Red Blood Cell (RBC) Count 3.23 mill/uL (4.20-5.40); White Blood Cell (WBC) Count 7.2 thou/uL (4.8-10.8)
[2018-05-19 17:56] LABS: ALT (SGPT) 9 U/L (8-55); AST (SGOT) 13 U/L (5-34); Albumin 3.3 g/dL (3.5-5.0); Alkaline Phosphatase 61 U/L (40-150); Anion Gap 10 mmol/L (10-20); BUN (Urea Nitrogen) 7 mg/dL (7.0-18.7); Bilirubin, Total 0.4 mg/dL (0.2-1.2); Calc. Creatinine Clearance 155 mL/min (70-130); Calcium 9.2 mg/dL (7.8-10.44); Carbon Dioxide 25 mmol/L (22-29); Chloride 107 mmol/L (98-107); Estimated GFR-MDRD Greater than 90; Globulin 2.9 g/dL (2.4-3.5); Glucose 94 mg/dL (70-105); Potassium 3.5 mmol/L (3.5-5.1); Protein, Total 6.2 g/dL (6.0-8.3); Sodium 138 mmol/L (136-145); Uric Acid 3.5 mg/dL (2.6-6.0)
[2018-05-19 18:36] LABS: Creatinine, Urine 104.98 mg/dL (47-110); Protein, Urine Random Quant Less than 10 mg/dL (1-14)
[2018-05-19] MEDS ORDERED: Ondansetron PF 4 MG/2 ML Vial IVP PRN (20:21)
[2018-05-19] MEDS ORDERED: Docusate 100 MG CAP PO PRN (20:21)
--- NOTE | 2018-05-19 20:33 | PDOC.EVN ---
Event Note - Event Note Event Note: 05/19/18 at appx 18:15 On reevaluation, patient is comfortable and chest pain free. She states she is less anxious. She denies vision changes, headache, RUQ pain currently. SBP elevated to 180, which downtrended to 160, and then 150's without any intervention CMP nml, CBC shows mild anemia which is stable, Upr/Ucr 0.095 Due to consistently elevated BP, decision was made to admit patient overnight for observation and collect 24 urine protein Will start low dose of labetolol BID and continue to monitor BP q1h Staff to notify of BP >160/110 Most recent BP at 20:15 was 148/89 Patient continues to be asymptomatic Patient was notified of plans and was agreeable with management The above was also discussed with attending, Dr. Clemons <Emeli Dempsey - Last Filed: 05/19/18 20:27> Attending Addendum - Attending Addendum Date/Time: 05/19/18 3408 I personally evaluated the patient and discussed the management with Dr. Dempsey. Would favor starting labatalol at this time. Obtain records from [facility]. <Anatoly Clemons - Last Filed: 05/19/18 21:56>
[2018-05-19 21:25] VITALS: BP 157/93
[2018-05-19] MEDS: Labetalol 100 MG TAB PO SCH (21:25)
[2018-05-19 21:37] LABS: Amphetamine Not Detected (NotDetected); Barbiturates Screen Not Detected (NotDetected); Benzodiazepine Screen Not Detected (NotDetected); Cocaine Metabolite Screen Not Detected (NotDetected); Medtox Control Line Valid? VALID (VALID); Medtox Reader # READER 1; Methadone Not Detected (NotDetected); Methamphetamine Not Detected (NotDetected); Opiate Screen Not Detected (NotDetected); Oxycodone Screen Not Detected (NotDetected); Phencyclidine (PCP) Not Detected (NotDetected); THC/Cannabinoid Screen Not Detected (NotDetected); Tricyclic Screen Not Detected (NotDetected)
[2018-05-20] MEDS: Acetaminophen 500 MG TAB PO PRN ×2 (00:31→19:57)
--- NOTE | 2018-05-20 07:43 | PDOC.EVN ---
Event Note - Event Note Event Note: 05/20/2018 at 7:34 AM Patient asleep in bed resting comfortably. No complaints overnight. BP 150/86 (range from 135/76 to 165/81); labetolol started last night, patient has received one dose of 100 mg labetolol Pulse 69 RR 16 General: resting comfortably. Cardio: RRR. 3/6 blowing holosystolic murmur heard best at pulmonic region Resp: Clear to auscultation bilaterally. No acute distress. Ext: No cyanosis or edema. Pulses full and equal bilaterally. A/P: Gestational HTN - Pre-E workup negative - 24 hour urine protein being collected - 100 mg labetolol BID; first dose given last night - Continue to monitor BP (trend as above); high of 165/81 which resolved - FHT's reassuring - Patient will need weekly testing; consider BPP here in hospital due to concerns for poor follow up Hx of PTL - s/p 2 doses of steroids - sporadic contractions noted on strip, but nothing regular. Patient not currently feeling contractions - No cervical check performed yet Hx of GDM - No evidence of GDM during this Hx of Pre-E - Workup for Pre-E negative - 24 hour urine protein pending Anemia of - Continue iron supplementation Dispo: Plan for d/c home today pending 24 hour urine protein and possible BPP. Emeli Dempsey, PGY-2 <Emeli Dempsey - Last Filed: 05/20/18 07:33> Attending Addendum - Attending Addendum Date/Time: 05/20/18 1043 I personally evaluated the patient and discussed the management with Dr. Lopez. I agree with the History, Examination, Assessment and Plan documented above with any addition or exceptions noted below. <José Antonio Nunez - Last Filed: 05/20/18 10:43>
[2018-05-20] MEDS: Labetalol 100 MG TAB PO SCH (09:15)
[2018-05-20 09:53] VITALS: TEMP 97.3
[2018-05-20 18:11] LABS: Collection Duration 24 hrs; Urine Total Volume 2600 mL (600-1600)
[2018-05-20 18:37] LABS: Protein, Urine Less than 10 mg/dL (1-14)
--- NOTE | 2018-05-20 20:46 | ULT ---
ADDENDUM TO OB ULTRASOUND: Doppler study of the umbilical artery was performed on this exam. The umbilical artery doppler value was recorded at 20 to 27 cm/s. POS: [facility]
--- NOTE | 2018-05-20 21:13 | PDOC.EVN ---
Event Note - Event Note Event Note: 24hr urine protein <10, no concerns on US. FHTs category 1. Pt discharged to [facility] with prescription for labetalol 100mg BID and instructed to follow up with Dr Dempsey in clinic.
--- NOTE | 2018-05-21 12:43 | DIS-2 ---
DATE OF ADMISSION: 05/19/2018 DATE OF DISCHARGE: 05/20/2015 ADMITTING ATTENDING: Dr. José Antonio Nunez. DISCHARGE ATTENDING: Anatoly Clemons, RESIDENT: Dr. Emeli Dempsey. CONSULTS: None. IMAGING OR PROCEDURES: An obstetric ultrasound was performed. Doppler study of the umbilical artery was recorded at 20-27 cm per second. A single intrauterine is identified. Gestational age by ultrasound is 33 weeks and 2 days. Biometry measurements showed a BPD of 32 weeks and 4 days, head circumference showed 34 weeks and 4 days. Abdominal circumference at 32 weeks and 0 days. Femur length showed 32 weeks and 2 days. Estimated weight was 1985 grams. Amniotic fluid was noted to be low normal at 8.4 cm. heart rate was 150 beats per minute. Placenta was fundal. Presentation was vertex. Limited anatomy was performed. The visualized intracranial contents, stomach, kidneys, cord insertion, bladder, and 3-vessel cord appeared unremarkable. Cervical length was reported at 3.6 cm. PRIMARY DIAGNOSES: 1. Single intrauterine . 2. Gestational hypertension. 3. History of labor in prior . 4. History of preeclampsia in prior . 5. History of gestational hypertension in prior . 6. History of gestational diabetes in prior . DISCHARGE MEDICATIONS: 1. Labetalol 100 mg b.i.d. 2. Aspirin 81 mg p.o. daily. 3. Ferrous sulfate 325 mg p.o. b.i.d. 4. vitamin 1 tablet p.o. daily. 5. Docusate 100 mg p.o. b.i.d. p.r.n. for constipation. HISTORY OF PRESENT ILLNESS/HOSPITAL COURSE: This is a 33-year-old female that presented at 32 and 3 weeks by 20.4 wk sono with complaint of chest pain that started around 6:00 a.m. The patient stated the pain was located on the right side of the chest, it did not radiate. It was not associated with diaphoresis or nausea. The patient states that she has not had this pain previously. She does endorse being anxious. The patient stated she had contractions all night, which persisted to about 6:00 a.m. The contractions resolved except when walking. The patient also endorses lower back and pelvic pain. The patient states the back pain is worse when standing. She denies dysuria, vaginal bleeding, vaginal discharge, loss of fluid. Patient has had intermittent contractions throughout her . The patient remained stable throughout the course of her hospital stay. Her chest pain resolved after administration of 1000 mg of Tylenol and with time. However, the patient was noted to have blood pressures with systolic blood pressure as high as 180. The blood pressures did downtrend; however, the patient was remaining in the 140s to 150 range. She has a history of preeclampsia and has been worked up during this for preeclampsia. Preeclampsia labs were ordered to include CBC, CMP, and a urine protein- creatinine ratio. All labs were noted to be normal. However, due to the persistent nature of the elevated blood pressures, it was decided to observe the patient and collect a 24-hour urine protein to ensure 24-hour urine protein correlated with the urine spot protein-creatinine ratio. Additionally, during this hospitalization, the patient was diagnosed with gestational hypertension as she has had several documented blood pressures above 140/90 on different occasions. Since blood pressures are ranging above 160/110 range on occasion, it was decided to start patient on a low dose of labetalol for better blood pressure control with a goal of not going below 140/98 to risk poor perfusion to fetus as this is what fetus is likely used to at this point in the . The patient agreed to the medications. Throughout the course of her hospital stay, her blood pressure never swati above 160/110. Patient remained asymptomatic in regard to her chest pain as well as headache, nausea, vomiting, right upper quadrant pain, edema, shortness of breath, or vision changes. Of note, the patient does have a systolic murmur. She reportedly has seen Dr. Johnston in the past for which records have been requested. We have been unsuccessful in obtaining these records. Of note, EKG was performed in the emergency department, the patient was noted to have a normal sinus rhythm. Attempts were made to call medical record to Dr. Johnston's office and attempts to review the records and confirm patient's diagnosis. A 24-hour urine protein was collected, it was noted to be below 300. Thus, the patient was discharged home without a diagnosis of preeclampsia. She was advised to continue taking her blood pressure medications twice a day as prescribed. She was also advised to see Dr. Stef Hawkins at [facility] on Saturday of this coming week as she needs a very close followup due to her past obstetric history and current problems. Patient stated that she is agreeable to scheduling an appointment. The patient also had a Case Management consult during this hospitalization. She states that she has individuals to help her look after her babies and she is now having a place to stay. Case management was concerned about baby going home with the mother after the delivery. DISPOSITION: Stable. DISCHARGE INSTRUCTIONS: 1. Location: Home. 2. Activity: As tolerated. 3. Diet: Regular. 4. Followup: The patient is to follow up with [facility] this Saturday at her convenience. Patient also has an appointment scheduled for the following Saturday, which she says she will also attempt. The patient will need an anatomy ultrasound was only performed, still limited anatomy ultrasound here during this hospitalization. The patient will need weekly BPP, NSTs, which need to be scheduled as well. [facility]
--- NOTE | 2018-05-21 15:07 | ULT ---
ADDENDUM TO OB ULTRASOUND: Doppler study of the umbilical artery was performed on this exam. The umbilical artery doppler value was recorded at 20 to 27 cm/s.
--- NOTE | 2018-05-31 10:31 | EKG ---
Test Reason : CP Blood Pressure : / mmHG Vent. Rate : 079 BPM Atrial Rate : 079 BPM P-R Int : 168 ms QRS Dur : 084 ms QT Int : 386 ms P-R-T Axes : 005 -21 019 degrees QTc Int : 442 ms Normal sinus rhythm Moderate voltage criteria for LVH, may be normal variant Borderline ECG Confirmed by MARK FERMIN ([id number]), staff editor DG CASTILLO ([id number]) on 05/31/2018 10:31:18 AM Referred By: Confirmed By:MARK FERMIN
== END 2018-05-20 21:40 | disposition home health service (06) ==
LOC: ERS 15:17 → L&D/OP 15:17 → EDSTATUS 15:54 → INTOOBSV 20:59 → L&D 20:59
PROVIDERS: ADMIT Family Medicine; ATTEND Family Medicine
DX: O13.3 Gestational [pregnancy-induced] hypertension without significant proteinuria, third trimester (principal); O99.89 Other specified diseases and conditions complicating pregnancy, childbirth and the puerperium; R01.1 Cardiac murmur, unspecified; R07.9 Chest pain, unspecified; M54.5 Low back pain; R10.2 Pelvic and perineal pain; O99.013 Anemia complicating pregnancy, third trimester; D64.9 Anemia, unspecified; O98.313 Other infections with a predominantly sexual mode of transmission complicating pregnancy, third trimester; A59.9 Trichomoniasis, unspecified; Z3A.32 32 weeks gestation of pregnancy; Z79.82 Long term (current) use of aspirin; Z79.899 Other long term (current) drug therapy; Z91.041 Radiographic dye allergy status; Z91.013 Allergy to seafood; Z59.0 Homelessness
CPT/HCPCS: 36415; 59025; 76700; 76816; 80053; 80306; 82570; 84156; 84550; 85025; 93005; 99285; G0378

== ENCOUNTER 2018-05-28 19:44 | Day surgery (SDC) | payer OTHER ==
[2018-05-28 20:14] VITALS: BP 125/76; TEMP 99.1; BMI 31.4
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
[2018-05-28] MEDS ORDERED: Acetaminophen 325 MG TAB PO PRN (21:18)
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
--- NOTE | 2018-05-30 13:52 | ULT ---
DUPLEX UMBILICAL CORD EVALUATION: 05/28/18 Resistive index of the umbilical artery is 0.5 to 0.6. Systolic to diastolic ratio is 1.9 to 2.6. This is well within normal range. Good color and spectral doppler flow are documented within the umbilical artery. IMPRESSION: Normal umbilical doppler sonogram.
== END 2018-05-28 23:59 | disposition home or self-care (01) ==
LOC: L&D/OP 19:44
PROVIDERS: ATTEND Student in an Organized Health Care Education/Training Program
DX: O99.89 Other specified diseases and conditions complicating pregnancy, childbirth and the puerperium (principal); R10.9 Unspecified abdominal pain; R01.1 Cardiac murmur, unspecified; O13.3 Gestational [pregnancy-induced] hypertension without significant proteinuria, third trimester; O14.93 Unspecified pre-eclampsia, third trimester; O99.013 Anemia complicating pregnancy, third trimester; D64.9 Anemia, unspecified; Z3A.33 33 weeks gestation of pregnancy; Z79.82 Long term (current) use of aspirin; Z79.899 Other long term (current) drug therapy; Z91.041 Radiographic dye allergy status; Z91.14 Patient's other noncompliance with medication regimen; Z59.0 Homelessness; W22.8XXA Striking against or struck by other objects, initial encounter
CPT/HCPCS: 76816; 76819; 93976; 99283

== ENCOUNTER 2018-06-19 14:36 | Inpatient (IN) | payer OTHER ==
--- NOTE | 2018-06-19 17:44 | PDOC.FPROB ---
FMR OB H&P: HPI - History of Present Illness Chief Complaint: Medically indicated IOL for gHTN Indentification: 33 year old at 36.6 wks History of Present Illness: 33 year old at 36.6 wks presents for medically indicated IOL for uncontrolled gHTN. Patient has poor PNC. She has not attended many of her appointments. Patient was placed on medication for BP during one of her hospitalizations as her pressures have been uncontrolled; however, patient stopped taking labetolol shortly after starting the medication due to supposed side effects. Patient denies any vaginal bleeding, vaginal discharge, LoF, or contractions. She endorses good movement. Primary Care Physician: MARCIN Dempsey FMR OB H&P: Current - Care : 9 Para: [id number] Gestational age: 36.6 wks Due date: 07/11/2018 Dating Criteria: 20.4 wk sono - OB Labs Blood type: A RH: positive Antibody Screen: negative HIV: negative RPR: negative HepBsAg: negative Rubella: immune Urine drug screen: negative Gonorrhea: negative Chlamydia: negative 1 hour gtt: 98 GBS: unknown (Poor PNC. Swab obtained in clinic today. Will not have results prior to IOL.) FMR OB H&P: History - Past Medical History PMH: cHTN? - unconfirmed Homelessness - OB History OB History: Uncontrolled gHTN vs. cHTN (presented to care >20 wks) Anemia of Hx of Pre-E in 2 prior pregnancies Hx of GDM in prior Social issues affecting care Hx of trichomonas infection in current Hx of PTD x4 (earliest at 24 wks) - Surgical History Sx History: None - Social History Social History: Denies alcohol, tobacco, or drug use. FMR OB H&P: Medications - Current Home Medications: Medication Instructions Recorded Confirmed Type Acetaminophen [Tylenol Extra 500 mg PO Q6H PRN tab 05/20/18 06/19/18 Rx Strength] Allergies/Adverse Reactions: Allergies Allergy/AdvReac Type Severity Reaction Status Date / Time Fish Containing Products Allergy Severe Anaphylaxis Verified 06/19/18 22:52 iodine Allergy Severe Anaphylaxis Verified 06/19/18 22:51 FMR OB H&P: ROS - Review of Systems General: reports: weight/appetite/sleep changes (States she has not been sleeping well for the last few days.). denies: fever/chills Eyes: denies: eye pain, vision changes ENT: denies: nasal congestion, rhinorrhea Cardiovascular: denies: chest pain, palpitation Respiratory: denies: cough, shortness of breath Gastrointestinal: denies: abdominal pain, indigestion Genitourinary (Female): denies: incontinence, dysuria Musculoskeletal: denies: pain, stiffness, tenderness Neurologic: denies: numbness, syncope Integumentary: denies: itching, rash Psychological: denies: depression, anxiety FMR OB H&P: Vital Signs - Maternal Vital signs: BP158/90 HR 88 RR 14 - Heart Tones Baseline: 150 Variability: moderate Acceleration: absent Deceleration: absent Category: category 1 [place] contractions every: 3-4 FMR OB H&P: Physical Exam - Physical Exam General: NAD, awake, alert and oriented HEENT: normocephalic and atraumatic, EOMI, MMM, grossly normal hearing Neck: FROM, no JVD Chest: non-tender to palpation, no lesions Heart: RRR, normal S1/S2, other (Systolic murmur best heard at lower left sternal border) General: CTAB, no respiratory distress, good air movement Abdomen: soft, gravid, non-tender, other (US reveals vertex position) Musculoskeletal: pulses present, FROM in all four extremities Neurological: cranial nerves II through XII intact Skin: no rash, good tugor Psychiatric: intact recent and remote memory, good judgement and insight - Pelvic Exam SVE: 1.5/75/-3 Patten score: 4-5 FMR OB H&P: Results - Imaging Imaging: Bedside US shows vertex position FMR OB H&P: A/P - Problem List (1) Encounter for induction of labor Current Visit: No Status: Acute Code(s): Z34.90 - ENCNTR FOR SUPRVSN OF NORMAL , UNSP, UNSP TRIMESTER (2) 36 to 37 weeks gestation of Current Visit: No Status: Acute Code(s): [id number] - (3) Gestational HTN Current Visit: No Status: Acute Code(s): O13.9 - GESTATIONAL HTN W/O SIGNIFICANT PROTEINURIA, UNSP TRIMESTER Qualifiers: Trimester: third trimester Qualified Code(s): O13.3 - Gestational [ -induced] hypertension without significant proteinuria, third trimester (4) History of gestational diabetes mellitus (GDM) in prior , currently Current Visit: No Status: Acute Code(s): O09.299 - SUPRVSN OF PREG W POOR REPRODCTV OR OBSTET HISTORY, UNSP TRI; Z86.32 - PERSONAL HISTORY OF GESTATIONAL DIABETES (5) Homelessness Current Visit: No Status: Acute Code(s): Z59.0 - HOMELESSNESS (6) History of pre-eclampsia in prior , currently Current Visit: No Status: Chronic Code(s): O09.299 - SUPRVSN OF PREG W POOR REPRODCTV OR OBSTET HISTORY, UNSP TRI (7) History of delivery, currently Current Visit: No Status: Chronic Code(s): O09.219 - SUPRVSN OF PREG W HISTORY OF PRE-TERM LABOR, UNSP TRIMESTER (8) Systolic murmur Current Visit: No Status: Chronic Code(s): R01.1 - CARDIAC MURMUR, UNSPECIFIED Disposition: 33 year old at 36.6 wks presents for medically indicated IOL for uncontrolled gHTN 1. Encounter for medically indicated induction of labor - Uncontrolled gHTN - at 36.6 wks; 9:00 PM induction, current contractions q3-4 minutes. We will reassess in 3-4 hours for need for cytotec - Cervical check in clinic , Initial check on admission - Pitocin for additional augmentation when indicated - monitoring 2. Uncontrolled gHTN vs cHTN - Presented to care >20 wks - BP today in clinic 153/67; patient has been previously on medication but did not take it as prescribed - Pre-E workups thus far in have been negative - Obtain Pre-E labs on admission - Monitor BP - Monitor for s/s of pre-E - monitoring 3. Hx of Pre-E during prior pregnancies - x2 prior pregnancies - Pre-E workups have been negative to date - Obtain pre-E labs on admission - Monitor for s/s of pre-E 4. Hx of GDM in prior - 1h GTT nml at 98 5. Hx of PTD - was not a candidate for OH-17 progesterone due to late presentation 6. Anemia of - Patient has not been taking iron Dispo: Stable. Admit to L&D for IOL. Discussion: Date/Time: 06/19/181740 This H&P was discussed with Dr. Brink who agrees with the above documentation and plan. Signature: Emeli Dempsey, DO PGY-2
[2018-06-19] MEDS ORDERED: Ondansetron PF 4 MG/2 ML Vial IVP PRN (22:29)
[2018-06-19] MEDS ORDERED: Docusate 100 MG CAP PO PRN (22:29)
[2018-06-19] MEDS ORDERED: Promethazine HCl 25 MG/ML VIAL IM PRN (22:29)
[2018-06-19] MEDS ORDERED: Lidocaine 1% (PF) 30 ML VIAL SC PRN (22:29)
[2018-06-19] MEDS ORDERED: Acetaminophen 500 MG TAB PO PRN (22:29)
[2018-06-19] MEDS ORDERED: Ibuprofen 800 MG TAB PO PRN (22:29)
[2018-06-19] MEDS ORDERED: NS / Oxytocin 40 units/1000ml 1,000 ML IV PRN (22:29)
[2018-06-19 23:05] VITALS: BMI 38.4
[2018-06-19] MEDS: Lactated Ringer's 1,000 ML IV SCH (23:15)
[2018-06-19 23:41] LABS: Hemoglobin 10.5 g/dL (12.0-16.0); Mean Corpuscular HGB CONC 32.4 g/dL (32.0-36.0); Mean Corpuscular Hemoglobin 29.5 pg (27.0-31.0); Mean Platelet Volume 7.4 fL (7.4-10.4); Platelet Count 245 thou/uL (130-400); RBC Distribution Width 12.8 % (11.5-14.5); Red Blood Cell (RBC) Count 3.55 mill/uL (4.20-5.40); White Blood Cell (WBC) Count 7.9 thou/uL (4.8-10.8)
[2018-06-19 23:59] LABS: ALT (SGPT) 9 U/L (8-55); AST (SGOT) 17 U/L (5-34); Albumin 3.5 g/dL (3.5-5.0); Alkaline Phosphatase 99 U/L (40-150); Anion Gap 12 mmol/L (10-20); BUN (Urea Nitrogen) 6 mg/dL (7.0-18.7); Bilirubin, Total 0.4 mg/dL (0.2-1.2); Calc. Creatinine Clearance 197 mL/min (70-130); Calcium 9.1 mg/dL (7.8-10.44); Carbon Dioxide 22 mmol/L (22-29); Chloride 108 mmol/L (98-107); Estimated GFR-MDRD Greater than 90; Globulin 2.9 g/dL (2.4-3.5); Glucose 94 mg/dL (70-105); Potassium 3.7 mmol/L (3.5-5.1); Protein, Total 6.4 g/dL (6.0-8.3); Sodium 138 mmol/L (136-145)
[2018-06-20 00:12] LABS: HBSAg Index 0.21 S/CO (0-0.99); Hep B Surf Ag Non-Reactive S/CO (NonReactive); Syphilis Antibody Nonreactive (Nonreactive); Syphilis Antibody Index 0.06 S/CO (<1.00 Non-Reactive)
[2018-06-20] MEDS ORDERED: NIFEdipine 10 MG CAP PO SCH ×3 (03:45→08:45)
[2018-06-20] MEDS: NS w/ Oxytocin 10 units 500 ML IV SCH ×2 (03:55→17:13)
[2018-06-20] MEDS: Misoprostol 100 MCG TAB VAG SCH ×4 (04:16→07:44)
--- NOTE | 2018-06-20 04:23 | PDOC.LDPN ---
Labor & Delivery Progress Note - Subjective Subjective: comfortable, no concerns - Objective Vital signs reviewed and normal: yes General: NAD, resting Uterine fundus: non tender SVE: /-3 Dilation: 2 Station: -3 FHT: category 1, variability present (moderate) [place] contractions every: absent - Assessment (1) Encounter for induction of labor Code(s): Z34.90 - ENCNTR FOR SUPRVSN OF NORMAL , UNSP, UNSP TRIMESTER Current Visit: No Status: Acute (2) 36 to 37 weeks gestation of Code(s): [id number] - Current Visit: No Status: Acute (3) Gestational HTN Code(s): O13.9 - GESTATIONAL HTN W/O SIGNIFICANT PROTEINURIA, UNSP TRIMESTER Current Visit: No Status: Acute Qualifiers: Trimester: third trimester Qualified Code(s): O13.3 - Gestational [ -induced] hypertension without significant proteinuria, third trimester (4) History of gestational diabetes mellitus (GDM) in prior , currently Code(s): O09.299 - SUPRVSN OF PREG W POOR REPRODCTV OR OBSTET HISTORY, UNSP TRI ; Z86.32 - PERSONAL HISTORY OF GESTATIONAL DIABETES Current Visit: No Status : Acute (5) Homelessness Code(s): Z59.0 - HOMELESSNESS Current Visit: No Status: Acute (6) History of pre-eclampsia in prior , currently Code(s): O09.299 - SUPRVSN OF PREG W POOR REPRODCTV OR OBSTET HISTORY, UNSP TRI Current Visit: No Status: Chronic (7) History of delivery, currently Code(s): O09.219 - SUPRVSN OF PREG W HISTORY OF PRE-TERM LABOR, UNSP TRIMESTER Current Visit: No Status: Chronic (8) Systolic murmur Code(s): R01.1 - CARDIAC MURMUR, UNSPECIFIED Current Visit: No Status: Chronic Plan: continue plan of care -: 33 year old at 36.6 wks presents for medically indicated IOL for uncontrolled gHTN 1. Encounter for medically indicated induction of labor - Uncontrolled gHTN - at 36.7 wks; Contractions were q3-4 minutes and have now disipated. We are starting pitocin - Cervical check in clinic , Initial check on admission 1/75/-3, Latest check /-3 - monitoring 2. Uncontrolled gHTN vs cHTN - Presented to care >20 wks - BP today in clinic 153/67; patient has been previously on medication but did not take it as prescribed - Pre-E workups thus far in have been negative - Obtain Pre-E labs on admission - SBP has ranged from 130s-170s, diastolic from 70s-110s. We are starting gHTN protocol using nifedepine - Monitor for s/s of pre-E - monitoring 3. Hx of Pre-E during prior pregnancies - x2 prior pregnancies - Pre-E workups have been negative to date - Obtain pre-E labs on admission - Monitor for s/s of pre-E 4. Hx of GDM in prior - 1h GTT nml at 98 5. Hx of PTD - was not a candidate for OH-17 progesterone due to late presentation 6. Anemia of - Patient has not been taking iron
[2018-06-20 04:36] LABS: Creatinine, Urine 216.81 mg/dL (47-110)
[2018-06-20 04:38] LABS: Amphetamine Not Detected (NotDetected); Barbiturates Screen Not Detected (NotDetected); Benzodiazepine Screen Not Detected (NotDetected); Cocaine Metabolite Screen Not Detected (NotDetected); Medtox Control Line Valid? VALID (VALID); Medtox Reader # READER 4; Methadone Not Detected (NotDetected); Methamphetamine Not Detected (NotDetected); Opiate Screen Not Detected (NotDetected); Oxycodone Screen Not Detected (NotDetected); Phencyclidine (PCP) Not Detected (NotDetected); THC/Cannabinoid Screen Not Detected (NotDetected); Tricyclic Screen Not Detected (NotDetected)
[2018-06-20] MEDS: Lactated Ringer's 1,000 ML IV SCH ×3 (05:59→19:58)
--- NOTE | 2018-06-20 09:33 | PDOC.LDPN ---
Labor & Delivery Progress Note - Subjective Subjective: comfortable - Objective Abnormal vital signs: BP 160/102 General: NAD Uterine fundus: non tender Dilation: 2 Effacement: 90% Station: -3 FHT: category 1 [place] contractions every: 3min - Assessment (1) 36 to 37 weeks gestation of Code(s): [id number] - Current Visit: No Status: Acute (2) [place] vaginitis Code(s): B37.3 - CANDIDIASIS OF VULVA AND VAGINA Current Visit: No Status: Acute (3) Encounter for induction of labor Code(s): Z34.90 - ENCNTR FOR SUPRVSN OF NORMAL , UNSP, UNSP TRIMESTER Current Visit: No Status: Acute (4) Gestational HTN Code(s): O13.9 - GESTATIONAL HTN W/O SIGNIFICANT PROTEINURIA, UNSP TRIMESTER Current Visit: No Status: Acute Qualifiers: Trimester: third trimester Qualified Code(s): O13.3 - Gestational [ -induced] hypertension without significant proteinuria, third trimester (5) History of gestational diabetes mellitus (GDM) in prior , currently Code(s): O09.299 - SUPRVSN OF PREG W POOR REPRODCTV OR OBSTET HISTORY, UNSP TRI ; Z86.32 - PERSONAL HISTORY OF GESTATIONAL DIABETES Current Visit: No Status : Acute (6) -induced benign hypertension in third trimester Code(s): O13.3 - GESTATIONAL HTN W/O SIGNIFICANT PROTEINURIA, THIRD TRIMESTER Current Visit: No Status: Acute (7) History of pre-eclampsia in prior , currently Code(s): O09.299 - SUPRVSN OF PREG W POOR REPRODCTV OR OBSTET HISTORY, UNSP TRI Current Visit: No Status: Chronic (8) History of delivery, currently Code(s): O09.219 - SUPRVSN OF PREG W HISTORY OF PRE-TERM LABOR, UNSP TRIMESTER Current Visit: No Status: Chronic (9) Systolic murmur Code(s): R01.1 - CARDIAC MURMUR, UNSPECIFIED Current Visit: No Status: Chronic Plan: continue plan of care, labor augmentation -: 33 year old at 36.7 wks presents for medically indicated IOL for uncontrolled gHTN sIUP, medically indicated induction of labor - Uncontrolled gHTN - Cervical check /-3 @0915, Initial check on admission /-3 - Currently on Pitocin - monitoring Cat 1 - Continue serial cervical checks Uncontrolled gHTN vs cHTN - Presented to care >20 wks - Previously on medication but did not take it as prescribed - BPs elevated overnight, s/p Nifedipine x1 - Will start Mg & Mg protocol Hx of Pre-E during prior pregnancies - x2 prior pregnancies - Pre-E workups have been negative in clinic Hx of GDM in prior - 1h GTT nml at 98 Hx of PTD - was not a candidate for OH-17 progesterone due to late presentation Anemia of - Patient has not been taking iron
[2018-06-20] MEDS ORDERED: Fentanyl 4 mcg/Bup 0.1% Cadd 100 ML ONE (10:24)
[2018-06-20] MEDS ORDERED: Calcium Gluc 4.6 MEQ/10 ML (100 MG/ML) SLOW IVP PRN (11:16)
[2018-06-20] MEDS ORDERED: Magnesium Sulfate 20 GM/WATER 500 ML BAG IVPB SCH (11:30)
[2018-06-20] MEDS: Magnesium Sulfate 20 gm/500 ml 20 GM/500 ML BAG IVPB SCH ×2 (12:19→21:43)
[2018-06-20] MEDS ORDERED: NIFEdipine XL 30 MG TAB PO SCH (12:30)
--- NOTE | 2018-06-20 14:03 | PDOC.LDPN ---
Labor & Delivery Progress Note - Subjective Subjective: comfortable - Objective Vital signs reviewed and normal: yes General: NAD Uterine fundus: non tender Dilation: 2 cm Effacement: 50% Station: -3 FHT: category 1 (130 bpm/moderate/+ accels, no decels) [place] contractions every: 4 - Assessment (1) 36 to 37 weeks gestation of Code(s): [id number] - Current Visit: No Status: Acute (2) [place] vaginitis Code(s): B37.3 - CANDIDIASIS OF VULVA AND VAGINA Current Visit: No Status: Acute (3) Encounter for induction of labor Code(s): Z34.90 - ENCNTR FOR SUPRVSN OF NORMAL , UNSP, UNSP TRIMESTER Current Visit: No Status: Acute (4) Gestational HTN Code(s): O13.9 - GESTATIONAL HTN W/O SIGNIFICANT PROTEINURIA, UNSP TRIMESTER Current Visit: No Status: Acute Qualifiers: Trimester: third trimester Qualified Code(s): O13.3 - Gestational [ -induced] hypertension without significant proteinuria, third trimester (5) Homelessness Code(s): Z59.0 - HOMELESSNESS Current Visit: No Status: Acute (6) -induced benign hypertension in third trimester Code(s): O13.3 - GESTATIONAL HTN W/O SIGNIFICANT PROTEINURIA, THIRD TRIMESTER Current Visit: No Status: Acute (7) History of pre-eclampsia in prior , currently Code(s): O09.299 - SUPRVSN OF PREG W POOR REPRODCTV OR OBSTET HISTORY, UNSP TRI Current Visit: No Status: Chronic (8) History of delivery, currently Code(s): O09.219 - SUPRVSN OF PREG W HISTORY OF PRE-TERM LABOR, UNSP TRIMESTER Current Visit: No Status: Chronic -: 33HD @ 36.7w presents here for IOL for uncontrolled gHTN sIUP - continue pitocin with expectant management Uncontrolled gHTN vs cHTN - Presented to care >20 wks - Previously on medication but did not take it as prescribed - BPs elevated overnight, s/p Nifedipine x2 with appropriate response Hx of Pre-E during prior pregnancies - x2 prior pregnancies - Pre-E workups have been negative in clinic Hx of PTD - was not a candidate for OH-17 progesterone due to late presentation
[2018-06-20] MEDS ORDERED: Carboprost 250 MCG/ML AMP ONE (17:08)
[2018-06-20] MEDS ORDERED: Naloxone HCl 0.4 mg/ml Vial IVP PRN ×2 (17:16)
[2018-06-20] MEDS ORDERED: Eucerin (Mineral Oil/Petrolatum,White) 30 gm Jar TOP PRN (17:16)
[2018-06-20] MEDS ORDERED: Promethazine HCl 25 MG/ML VIAL IM PRN (17:16)
[2018-06-20] MEDS ORDERED: ePHEDrine/0.9% NaCl/PF SYRINGE 50 mg/10 ml SLOW IVP PRN (17:16)
[2018-06-20] MEDS ORDERED: Ondansetron PF 4 MG/2 ML Vial IVP PRN (17:16)
[2018-06-20] MEDS ORDERED: Lactated Ringer's 500 ML IV PRN (17:16)
[2018-06-20] MEDS ORDERED: Fentanyl 4 mcg/Bupivacaine 0.1% Cassette 100 ML EPIDURAL SCH (17:30)
[2018-06-20] MEDS ORDERED: Communication Order-Pharmacy FS SCH (17:30)
[2018-06-20] MEDS ORDERED: Sodium Chloride 0.9% 300 ML IV SCH (18:45)
[2018-06-20] MEDS ORDERED: Sodium Chloride 0.9% 1,000 ML IV SCH (18:45)
[2018-06-20] MEDS ORDERED: Bupivacaine/Epinephrine 0.25% 30 ML VIAL ONE (20:00)
[2018-06-20] MEDS: diphenhydrAMINE 50 MG/ML VIAL IVP PRN (20:51)
--- NOTE | 2018-06-20 22:26 | PDOC.LDPN ---
Labor & Delivery Progress Note - Subjective Subjective: comfortable - Objective Abnormal vital signs: BP's stable, but still elevated with SBP >140 General: NAD, resting Uterine fundus: non tender SVE: 21:32 Dilation: 8 Effacement: 100% Station: 0 FHT: category 1, variability present [place] contractions every: q5 min - Assessment (1) Encounter for induction of labor Code(s): Z34.90 - ENCNTR FOR SUPRVSN OF NORMAL , UNSP, UNSP TRIMESTER Current Visit: No Status: Acute (2) 36 to 37 weeks gestation of Code(s): [id number] - Current Visit: No Status: Acute (3) Gestational HTN Code(s): O13.9 - GESTATIONAL HTN W/O SIGNIFICANT PROTEINURIA, UNSP TRIMESTER Current Visit: No Status: Acute Qualifiers: Trimester: third trimester Qualified Code(s): O13.3 - Gestational [ -induced] hypertension without significant proteinuria, third trimester (4) History of gestational diabetes mellitus (GDM) in prior , currently Code(s): O09.299 - SUPRVSN OF PREG W POOR REPRODCTV OR OBSTET HISTORY, UNSP TRI ; Z86.32 - PERSONAL HISTORY OF GESTATIONAL DIABETES Current Visit: No Status : Acute (5) Homelessness Code(s): Z59.0 - HOMELESSNESS Current Visit: No Status: Acute (6) History of pre-eclampsia in prior , currently Code(s): O09.299 - SUPRVSN OF PREG W POOR REPRODCTV OR OBSTET HISTORY, UNSP TRI Current Visit: No Status: Chronic (7) History of delivery, currently Code(s): O09.219 - SUPRVSN OF PREG W HISTORY OF PRE-TERM LABOR, UNSP TRIMESTER Current Visit: No Status: Chronic (8) Systolic murmur Code(s): R01.1 - CARDIAC MURMUR, UNSPECIFIED Current Visit: No Status: Chronic Plan: continue plan of care, labor augmentation, pitocin for augmentation -: Patient on Mg. DTR's 2+. Adequate urine output. BP's have not been elevated above 160/110 mmHg since last check. No signs/symptoms of Mg toxicity. Patient comfortable and resting. Continue Mg. Patient on pitocin. Continue pitocin. IUPC in place. Will be prepared for PPH should it occur based on risk factors. Anticipate vaginal delivery. Emeli Dempsey, DO PGY-2
[2018-06-20] MEDS: Misoprostol 200 MCG TAB ONE ×3 (23:40→23:43)
[2018-06-20] MEDS ORDERED: NS / Oxytocin 40 units/1000ml 1,000 ML IV SCH (23:45)
[2018-06-20] MEDS ORDERED: Calcium Gluconate 4.6 MEQ in Sodium Chloride 0.9% 100 ML IVPB PRN (23:55)
[2018-06-20] MEDS ORDERED: diphenhydrAMINE 25 MG CAP PO PRN (23:55)
[2018-06-20] MEDS ORDERED: Lanolin Ointment 7 GM TUBE TOP PRN (23:55)
[2018-06-20] MEDS ORDERED: Bisacodyl 10 MG SUPP PR PRN (23:55)
[2018-06-20] MEDS ORDERED: Milk Of Magnesia 30 ML UDCUP PO PRN (23:55)
[2018-06-20] MEDS ORDERED: Adacel (T-DAP) 0.5 ML VIAL IM ONE (23:55)
--- NOTE | 2018-06-21 00:04 | PDOC.OPDEL ---
OB Operative/Delivery Note Delivery Dr/Surgeon: Demetrius Dempsey Assist: Miguel Pre-Delivery Diagnosis: medically indicated induction Procedure/Post Delivery Dx: spontaneous vaginal delivery Weeks gestation: 37 Anesthesia: epidural - Findings A Sex: female - 1 min: 9 - 5 min: 10 - Additional Findings/Plan Placenta delivered: spontaneous Repaired Obstetrical Laceration: none Estimated blood loss: <500 mL Compilations/Other Findings: Pre-op Diagnosis: 1. Medically indicated IOL for uncontrolled gHTN 2. Hx PPH, GDM, Pre-E, PTD 3. GBS unknown Post-op Diagnosis: 1. Term intrauterine , delivered 2. same as above Indications: A 33y/o female presented to L&D for medically indicated IOL. Delivery Note: This is 33yo F @ 37.0wks who delivered a viable F at 12:36 on 06/20/2018. Patient had uncontrolled gHTN with BP's in severe range and was started on Mg. BP's remained more stable after addition of Nifedipine 30 mg ER. A vigorous female was delivered over an intact perineum in the occipitoanterior position. This was after Dr. Gonzalez assisted with turning as she was initially OP. Anterior Shoulder and then remainder of the body delivered. Loose nuchal cord x1, reduced. The head was held down and mouth and nares were bulb suctioned. Cord clamped and cut after 1 minutes and cord blood collected. Placenta delivered intact with a 3 vessel cord noted. Fundal massage was performed and the fundus was firm. Bimanual exam was performed, and the uterus was free of clots. The cervix and vagina were inspected and found to be free of lacerations. went to nursery in good condition for routine care. Apgars were 9/10 at 1 & 5 minutes, respectively. Patient tolerated delivery well. She remained in L&D for Mg and BP monitoring. Cytotec 800 mcg was given as patient has several risk factors for PPH. Post delivery plan: recovery in LICU <Emeli Dempsey - Last Filed: 06/22/18 10:23> Attending Addendum - Attending Addendum Date/Time: 06/22/18 1108 I was present for and assisted in the entire uncomplicated performed by Torito Dempsey and Miguel. I agree with the above documented findings and plan of care. <Nichol Romo - Last Filed: 06/22/18 11:09>
[2018-06-21] MEDS: Preparation H Ointment 28 GM TUBE PR PRN (01:52)
[2018-06-21] MEDS: diphenhydrAMINE 50 MG/ML VIAL IVP PRN (03:10)
[2018-06-21] MEDS ORDERED: Tranexamic Acid 1,000 MG in Sodium Chloride 0.9% 250 ML 250 ML IVPB SCH (05:30)
[2018-06-21] MEDS ORDERED: Butorphanol Tartrate 1 MG/ML VIAL SLOW IVP SCH (05:30)
--- NOTE | 2018-06-21 05:41 | PDOC.EVN ---
Event Note - Event Note Event Note: Pt. denies sob, chest pain, weakness, nausea, and vomiting. She does report some continued vaginal pain. 133/81 BP at 0410, reflexes are 2/4 bilaterally. 800 ml urine output in the last hour. Pt. has firm uterus with palpable fibroids. There is no trickle or flow of blood per vagina currently. Pt. had QBL of 357 at time of delivery and ~1000ml since delivery. Pt. has had 800mg of cytotec and pitocin We are starting TXA at this time.
[2018-06-21 05:50] LABS: #Basophils 0.1 thou/uL (0.0-0.2); #Lymphocytes 1.3 thou/uL (1.20-3.40); #Monocytes 0.9 thou/uL (0.11-0.59); #Neutrophils 10.9 thou/uL (1.40-6.50); %Basophils 0.4 % (0.0-1.0); %Eosinophils 0.1 % (0.0-10.0); %Lymphocytes 9.8 % (21.0-51.0); %Monocytes 6.5 % (0.0-10.0); %Neutrophils 83.2 % (42.0-75.0); Hemoglobin 9.2 g/dL (12.0-16.0); Mean Corpuscular Hemoglobin 29.4 pg (27.0-31.0); Mean Platelet Volume 7.4 fL (7.4-10.4); Platelet Count 233 thou/uL (130-400); RBC Distribution Width 12.6 % (11.5-14.5); Red Blood Cell (RBC) Count 3.12 mill/uL (4.20-5.40); White Blood Cell (WBC) Count 13.2 thou/uL (4.8-10.8)
[2018-06-21 05:53] LABS: INR-International Normal Ratio 1.1; PTT 32.9 SEC (22.9-36.1); Prothrombin Time 14.1 SEC (12.0-14.7)
[2018-06-21] MEDS ORDERED: Ibuprofen 800 MG TAB PO SCH (06:00)
--- NOTE | 2018-06-21 06:41 | PDOC.EVN ---
Event Note - Event Note Event Note: 33 yo delivered a viable F infant @ 23:36 via on 06/20/18. -No complications with delivery. No lacerations noted. EBL was around 300 - complicated chronic vs gestational HTN and uterine fibroids. Since then pt has had about a blood loss of 1000 ml. We were up doing Mag checks on her. Uterus was found to be firm but above the umbilicus and felt full. At this time Dr. Gonzalez was asked to come an asisst. He performed a bimanual exam and evacuated from uterus and vaginal canal. qBL of clots was estimated to be around 1200. At this time we decided to give pt TXA. She had already received 800mg cytotec ppx after delivery. Vaginal wall was examined for any bleeding lacerations. None were noted. There was some blood pooling initially in the posterior cul de sac intially during exam. Seemed to be coming from the uterus. No sign of cervical lacerations. TXA was being administered during this time. Uterus was firm and below umbilicus. After repeated sweeps with laps the bleeding was minimal in the posterior cul de sac. There was still a little oozing but seemed to be improving. Another bimanual sweep of the uterus was performed by my Attending Dr. Romo. No clots were evacuated and there was minimal blood. At this time we will continue to observe pt. Pt possibly had some unevacuated placenta or clots in the uterus causing continuous bleeding. I since think we have removed this as uterus has firmed up and come below umbilicus. Will continue to observe.
--- NOTE | 2018-06-21 06:44 | PDOC.EVN ---
Event Note - Event Note Event Note: I was notified at 0521 that patient was having heavy oozing since delivery and that uterus was firm. Decision was made to give TXA at that time and get labs including coags. At 601 I was again notified that Dr Gonzalez had removed 350ml of clot from the uterus and that methergine was being given. Upon arriving to the hospital I was informed that the clot that was expressed was in fact 1250 ml and total qBL was 2500. On my exam the uterus was firm and 1cm above umbilicus. The uterus was explored manually and no clot was expressed. There was no atony noted. Cervix and vagina are free of lacerations. Vitals signs have remained stable. Will continue to monitor closely on L+D. Repeat CBC and coag studies pending.
[2018-06-21] MEDS ORDERED: CEFAZOLIN 2 GM/50 ML BAG IVPB SCH (07:00)
[2018-06-21 08:54] LABS: #Lymphocytes 1.2 thou/uL (1.20-3.40); #Monocytes 0.6 thou/uL (0.11-0.59); %Basophils 0.1 % (0.0-1.0); %Eosinophils 0.1 % (0.0-10.0); %Lymphocytes 7.9 % (21.0-51.0); %Monocytes 3.8 % (0.0-10.0); Hemoglobin 8.7 g/dL (12.0-16.0); Mean Corpuscular HGB CONC 32.4 g/dL (32.0-36.0); Mean Corpuscular Hemoglobin 30.2 pg (27.0-31.0); Mean Corpuscular Volume 93.2 fL (78.0-98.0); Mean Platelet Volume 7.4 fL (7.4-10.4); Platelet Count 227 thou/uL (130-400); RBC Distribution Width 12.8 % (11.5-14.5); Red Blood Cell (RBC) Count 2.89 mill/uL (4.20-5.40); White Blood Cell (WBC) Count 14.7 thou/uL (4.8-10.8)
[2018-06-21] MEDS: Prenatal Vitamin 1 TAB PO SCH (09:41)
[2018-06-21] MEDS: Ferrous Sulfate 325 MG TAB PO SCH ×2 (09:41→21:29)
[2018-06-21] MEDS: Docusate Calcium (SURFAK) 240 MG CAP PO SCH ×2 (09:41→21:25)
[2018-06-21] MEDS: NIFEdipine XL 30 MG TAB PO SCH (10:12)
[2018-06-21] MEDS: Lactated Ringer's 1,000 ML IV SCH (12:31)
[2018-06-21 14:20] LABS: Hemoglobin 7.4 g/dL (12.0-16.0); Mean Corpuscular HGB CONC 31.8 g/dL (32.0-36.0); Mean Corpuscular Hemoglobin 29.5 pg (27.0-31.0); Mean Corpuscular Volume 92.9 fL (78.0-98.0); Mean Platelet Volume 7.4 fL (7.4-10.4); Platelet Count 216 thou/uL (130-400); RBC Distribution Width 12.7 % (11.5-14.5); Red Blood Cell (RBC) Count 2.51 mill/uL (4.20-5.40); White Blood Cell (WBC) Count 13.7 thou/uL (4.8-10.8)
--- NOTE | 2018-06-21 15:50 | PDOC.EVN ---
Event Note - Event Note Event Note: Patient evaluated at 1430. Resting comfortably in bed. No complaints or concerns. States she no longer feels bloated, minimal bleeding from below, and no pain. BP 120s/70s. HR wnl. Will continue to monitor VS. Patient to be moved to . Exam: uterus firm at the level of the umbilicus, non TTP, normoactive BS
[2018-06-21] MEDS: Acetaminophen 325 MG TAB PO PRN ×2 (15:51→21:24)
[2018-06-21] MEDS: Benzocaine/Menthol 20-0.5% 60 ML CAN TOP PRN (17:31)
[2018-06-22 01:26] LABS: Hemoglobin 8.3 g/dL (12.0-16.0); Mean Corpuscular HGB CONC 32.8 g/dL (32.0-36.0); Mean Corpuscular Hemoglobin 29.5 pg (27.0-31.0); Mean Platelet Volume 7.6 fL (7.4-10.4); Platelet Count 215 thou/uL (130-400); RBC Distribution Width 15.6 % (11.5-14.5); Red Blood Cell (RBC) Count 2.82 mill/uL (4.20-5.40); White Blood Cell (WBC) Count 12.9 thou/uL (4.8-10.8)
[2018-06-22] MEDS: Ferrous Sulfate 325 MG TAB PO SCH ×2 (09:08→16:57)
[2018-06-22] MEDS: NIFEdipine XL 30 MG TAB PO SCH (09:08)
[2018-06-22] MEDS: Docusate Calcium (SURFAK) 240 MG CAP PO SCH ×2 (09:08→21:57)
[2018-06-22] MEDS: Prenatal Vitamin 1 TAB PO SCH (09:08)
[2018-06-22] MEDS: Misoprostol 100 MCG TAB VAG SCH ×3 (09:21→09:23)
[2018-06-22] MEDS: Lactated Ringer's 1,000 ML IV SCH (09:22)
--- NOTE | 2018-06-22 10:13 | PDOC.PP ---
Post Progress Note Post Day #: 2 Subjective: Patient doing well. No significant overnight events. Patient tolerating PO. Minimal lochia, like that of a period. Patient asymptomatic in term of anemia. No dizziness upon standing, no palpitations, no shortness of breath. PO intake tolerated: yes Flatus: yes Ambulation: yes Vital Signs (12 hours) Temp Pulse Resp BP BP Pulse Ox 06/22/18 09:08 83 143/89 H 06/22/18 08:00 98.7 F 83 16 143/89 H 99 06/22/18 04:00 98.6 F 86 18 132/77 06/21/18 22:30 98.6 F 83 18 127/63 Weight Weight 95.254 kg - Physical Examination General: NAD Cardiovascular: RRR Deviation from normal: Systolic murmur Respiratory: clear to auscultation bilaterally, non-labored breathing Abdominal: + bowel sounds, lochia (similar to that of period) Fundus firm & at: level of umbilicus Neurological: no gross focal deficits Psychiatric: A&Ox3, normal affect Result Diagrams: 06/22/18 01:05 06/19/18 23:15 Additional Labs: Post Labs Blood Type A POSITIVE 06/19/18 23:15 Hep Bs Antigen Non-Reactive S/CO (NonReactive) 06/19/18 23:15 (1) Encounter for induction of labor Code(s): Z34.90 - ENCNTR FOR SUPRVSN OF NORMAL , UNSP, UNSP TRIMESTER Status: Acute (2) 36 to 37 weeks gestation of Code(s): [id number] - Status: Acute (3) Gestational HTN Code(s): O13.9 - GESTATIONAL HTN W/O SIGNIFICANT PROTEINURIA, UNSP TRIMESTER Status: Acute Qualifiers: Trimester: third trimester Qualified Code(s): O13.3 - Gestational [ -induced] hypertension without significant proteinuria, third trimester (4) History of gestational diabetes mellitus (GDM) in prior , currently Code(s): O09.299 - SUPRVSN OF PREG W POOR REPRODCTV OR OBSTET HISTORY, UNSP TRI ; Z86.32 - PERSONAL HISTORY OF GESTATIONAL DIABETES Status: Acute (5) Homelessness Code(s): Z59.0 - HOMELESSNESS Status: Acute (6) History of pre-eclampsia in prior , currently Code(s): O09.299 - SUPRVSN OF PREG W POOR REPRODCTV OR OBSTET HISTORY, UNSP TRI Status: Chronic (7) History of delivery, currently Code(s): O09.219 - SUPRVSN OF PREG W HISTORY OF PRE-TERM LABOR, UNSP TRIMESTER Status: Chronic (8) Systolic murmur Code(s): R01.1 - CARDIAC MURMUR, UNSPECIFIED Status: Chronic (9) hemorrhage Code(s): O72.1 - OTHER IMMEDIATE HEMORRHAGE Status: Acute (10) Term delivered Code(s): O80 - ENCOUNTER FOR FULL-TERM UNCOMPLICATED DELIVERY Status: Acute - Assessment/Plan 33 year old delivered TAGA F at 23:36 on 06/20/2018 via 1. Term , delivered - Routine PP care - Patient did experience PPH; monitoring for continued s/s of anemia; s/p 2 units pRBC's - Contraception: IUD vs. Depo Provera - Radio Repairer: Ke - TAMP 2. gHTN uncontrolled with severe range pressures - Patient started on Mg intrapartum - Started on nifedpine 30 mg daily - No severe range pressures documented in last 24 hours - Mg was stopped before 24 hours due to PPH requiring TXA - Continue to monitor BP 3. PPH - s/p 2u pRBC's - Hg this AM 8.4 - Patient asymptomatic - Uterus firm and at level of umbilicus - Continue to monitor. Check Hg in AM 4. GBS unknown - Prelim at 12 hours negative - No antibiotics during labor Dispo: Watch overnight. Anticipate possible d/c home tomorrow. <Emeli Dempsey - Last Filed: 06/22/18 10:07> Vital Signs (12 hours) Temp Pulse Resp BP BP Pulse Ox 06/22/18 09:08 83 143/89 H 06/22/18 08:00 98.7 F 83 16 143/89 H 99 06/22/18 04:00 98.6 F 86 18 132/77 Weight Weight 95.254 kg Result Diagrams: 06/22/18 01:05 06/19/18 23:15 Additional Labs: Post Labs Blood Type A POSITIVE 06/19/18 23:15 Hep Bs Antigen Non-Reactive S/CO (NonReactive) 06/19/18 23:15 <Nichol Romo - Last Filed: 06/22/18 11:23> Attending Addendum - Attending Addendum Date/Time: 06/22/18 3966 I personally evaluated the patient and discussed the management with Dr. Dempsey I agree with the History, Examination, Assessment and Plan documented above with any addition or exceptions noted below. Stable PPD #2 s/p complicated by PPH. S/P 2 units PRBCs. Pt is asymptomatic at this time. BP has been mild range or normotensive on Nifedipine. Asymptomatic. Continue inpatient monitoring. Anticipate d/c to home tomorrow. <Nichol Romo - Last Filed: 06/22/18 11:23>
--- NOTE | 2018-06-22 11:30 | PDOC.EVN ---
Event Note - Event Note Event Note: Patient was noted to have PPH and hgb dropped from 9.2 -> 8.7 -> 7.4 on . Discussed blood transfusion with patient and explained risks and benefits. Patient understood and agreed to proceed with transfusion of blood products. Patient was transfused 2 units of PRBCs on 06/21 at 1530 and 1818. Patient was asymptomatic and no complaints.
[2018-06-22] MEDS: Acetaminophen 325 MG TAB PO PRN (21:57)
[2018-06-23 07:42] VITALS: BP 144/88; TEMP 98.6
--- NOTE | 2018-06-23 08:05 | PDOC.PP ---
Post Progress Note Post Day #: 3 Subjective: Patient doing well. No significant overnight events. Tolerating PO. Denies pain. PO intake tolerated: yes Flatus: yes Ambulation: yes Vital Signs (12 hours) Temp Pulse Resp BP Pulse Ox 06/23/18 07:41 98.6 F 70 16 144/88 H 100 Weight Weight 95.254 kg - Physical Examination General: NAD Cardiovascular: RRR Deviation from normal: Systolic murmur Respiratory: clear to auscultation bilaterally Abdominal: + bowel sounds, lochia (like period), no distention, appropriately TTP Fundus firm & at: below umbilicus Neurological: no gross focal deficits Psychiatric: A&Ox3, normal affect Result Diagrams: 06/22/18 01:05 06/19/18 23:15 Additional Labs: Post Labs Blood Type A POSITIVE 06/19/18 23:15 Hep Bs Antigen Non-Reactive S/CO (NonReactive) 06/19/18 23:15 (1) Encounter for induction of labor Code(s): Z34.90 - ENCNTR FOR SUPRVSN OF NORMAL , UNSP, UNSP TRIMESTER Status: Acute (2) 36 to 37 weeks gestation of Code(s): [id number] - Status: Acute (3) Gestational HTN Code(s): O13.9 - GESTATIONAL HTN W/O SIGNIFICANT PROTEINURIA, UNSP TRIMESTER Status: Acute Qualifiers: Trimester: third trimester Qualified Code(s): O13.3 - Gestational [ -induced] hypertension without significant proteinuria, third trimester (4) History of gestational diabetes mellitus (GDM) in prior , currently Code(s): O09.299 - SUPRVSN OF PREG W POOR REPRODCTV OR OBSTET HISTORY, UNSP TRI ; Z86.32 - PERSONAL HISTORY OF GESTATIONAL DIABETES Status: Acute (5) Homelessness Code(s): Z59.0 - HOMELESSNESS Status: Acute (6) History of pre-eclampsia in prior , currently Code(s): O09.299 - SUPRVSN OF PREG W POOR REPRODCTV OR OBSTET HISTORY, UNSP TRI Status: Chronic (7) History of delivery, currently Code(s): O09.219 - SUPRVSN OF PREG W HISTORY OF PRE-TERM LABOR, UNSP TRIMESTER Status: Chronic (8) Systolic murmur Code(s): R01.1 - CARDIAC MURMUR, UNSPECIFIED Status: Chronic (9) hemorrhage Code(s): O72.1 - OTHER IMMEDIATE HEMORRHAGE Status: Acute (10) Term delivered Code(s): O80 - ENCOUNTER FOR FULL-TERM UNCOMPLICATED DELIVERY Status: Acute - Assessment/Plan 33 year old delivered TAGA F infant at 23:36 on 06/20/2018 via 1. Term , delivered - Routine PP care - Patient did experience PPH; monitoring for continued s/s of anemia; s/p 2 units pRBC's. Asymptomatic - Contraception: IUD vs. Depo Provera - Material Control Supervisor: Ke - MARCIN 2. gHTN uncontrolled with severe range pressures - Patient started on Mg intrapartum - Started on nifedpine 30 mg daily; BP's in 140's systolic - No severe range pressures documented in last 24 hours - Mg was stopped before 24 hours due to PPH requiring TXA - Continue BP medication as outpatient 3. PPH - s/p 2u pRBC's - Hg 8.4 after 2 units pRBCs - Patient asymptomatic - Uterus firm and below umbilicus - AM CBC pending - Iron supplementation as outpatient 4. GBS unknown - Prelim at 12 hours negative - No antibiotics during labor Dispo: D/C home today. Follow up at [facility] in 2 weeks. <Emeli Dempsey - Last Filed: 06/23/18 08:02> Vital Signs (12 hours) Temp Pulse Resp BP BP Pulse Ox 06/23/18 09:10 70 144/88 H 06/23/18 07:41 98.6 F 70 16 144/88 H 100 Weight Weight 95.254 kg Result Diagrams: 06/23/18 08:36 06/19/18 23:15 Additional Labs: Post Labs Blood Type A POSITIVE 06/19/18 23:15 Hep Bs Antigen Non-Reactive S/CO (NonReactive) 06/19/18 23:15 <Anatoly Brink - Last Filed: 06/23/18 12:36> Attending Addendum - Attending Addendum Date/Time: 06/23/18 1228 I personally evaluated the patient and discussed the management with Dr. Dempsey. I agree with the History, Examination, Assessment and Plan documented above with any addition or exceptions noted below. W/o c/o's. Lochia normal. Afeb. VSS on Nifedipine. Fundus firm. Stable for d/c home. Current Family Planning intends to be Depo-Provera, encouraged pt to f/u MATTHEW to discuss further as OP--counselled for 20 min. <Anatoly Brink - Last Filed: 06/23/18 12:36>
[2018-06-23 08:57] LABS: #Basophils 0.1 thou/uL (0.0-0.2); #Eosinphils 0.1 thou/uL (0.0-0.7); #Lymphocytes 2.4 thou/uL (1.20-3.40); #Monocytes 0.6 thou/uL (0.11-0.59); %Basophils 1.2 % (0.0-1.0); %Eosinophils 0.9 % (0.0-10.0); %Lymphocytes 29.3 % (21.0-51.0); %Monocytes 7.6 % (0.0-10.0); Hemoglobin 8.8 g/dL (12.0-16.0); Mean Corpuscular HGB CONC 31.6 g/dL (32.0-36.0); Mean Corpuscular Hemoglobin 28.6 pg (27.0-31.0); Mean Corpuscular Volume 90.5 fL (78.0-98.0); Mean Platelet Volume 7.4 fL (7.4-10.4); Platelet Count 249 thou/uL (130-400); RBC Distribution Width 15.1 % (11.5-14.5); Red Blood Cell (RBC) Count 3.07 mill/uL (4.20-5.40); White Blood Cell (WBC) Count 8.1 thou/uL (4.8-10.8)
[2018-06-23] MEDS: Docusate Calcium (SURFAK) 240 MG CAP PO SCH (09:10)
[2018-06-23] MEDS: Prenatal Vitamin 1 TAB PO SCH (09:10)
[2018-06-23] MEDS: NIFEdipine XL 30 MG TAB PO SCH (09:10)
[2018-06-23] MEDS: Acetaminophen 325 MG TAB PO PRN (09:10)
[2018-06-23] MEDS: Ferrous Sulfate 325 MG TAB PO SCH (09:10)
[2018-06-23] MEDS: Benzocaine/Menthol 20-0.5% 60 ML CAN TOP PRN (13:21)
[2018-06-23] MEDS: Preparation H Ointment 28 GM TUBE PR PRN (13:21)
== END 2018-06-23 14:40 | disposition home or self-care (01) | DRG 806 ==
LOC: L&D 22:25 → 3SW 06-21 22:47
PROVIDERS: ADMIT Family Medicine; ATTEND Family Medicine
PROC: 10E0XZZ Delivery of Products of Conception, External Approach (ICD-10-PCS; principal; 2018-06-20)
PROC: 10907ZC Drainage of Amniotic Fluid, Therapeutic from Products of Conception, Via Natural or Artificial Opening (ICD-10-PCS; 2018-06-20)
PROC: 3E033VJ Introduction of Other Hormone into Peripheral Vein, Percutaneous Approach (ICD-10-PCS; 2018-06-20)
PROC: 30233N1 Transfusion of Nonautologous Red Blood Cells into Peripheral Vein, Percutaneous Approach (ICD-10-PCS; 2018-06-21)
PROC: 3E033VJ Introduction of Other Hormone into Peripheral Vein, Percutaneous Approach (ICD-10-PCS; 2018-06-21)
DX: O13.4 Gestational [pregnancy-induced] hypertension without significant proteinuria, complicating childbirth (principal); O98.82 Other maternal infectious and parasitic diseases complicating childbirth; Z37.0 Single live birth; Z3A.36 36 weeks gestation of pregnancy; Z59.0 Homelessness; O99.02 Anemia complicating childbirth; D64.9 Anemia, unspecified; R01.1 Cardiac murmur, unspecified; B37.3 Candidiasis of vulva and vagina; O72.1 Other immediate postpartum hemorrhage; Z86.32 Personal history of gestational diabetes
CPT/HCPCS: 36415; 36430; 51702; 76815; 80053; 80306; 82570; 83735; 84156; 85025; 85027; 85610; 85730; 86780; 86850; 86900; 86901; 87340; J0595; J1200; J2001; J2405; J3475; J3490; J7050; P9016

== ENCOUNTER 2019-01-26 10:58 | Emergency (ER) | payer OTHER | END 2019-01-26 13:23 | disposition left against medical advice (07) | LOC: ERS 10:58 | DX: T74.21XA Adult sexual abuse, confirmed, initial encounter (principal); F17.210 Nicotine dependence, cigarettes, uncomplicated; Y07.9 Unspecified perpetrator of maltreatment and neglect ==

== ENCOUNTER 2020-02-09 17:21 | Emergency (ER) | payer OTHER ==
[2020-02-09 19:59] LABS: Pregnancy Test - Urine (BHCG) Negative (Negative); Pregu Control Background? CLEAR/WHITE (CLR/WHITE); Pregu Control Bar Appear? YES (CONTROL BAR); Specific Gravity 1.027 (1.002-1.036)
== END 2020-02-09 19:50 | disposition home or self-care (01) ==
LOC: ERS 17:21
DX: M54.2 Cervicalgia (principal); R51 Headache; I10 Essential (primary) hypertension; F41.9 Anxiety disorder, unspecified; F32.9 Major depressive disorder, single episode, unspecified; F17.210 Nicotine dependence, cigarettes, uncomplicated
CPT/HCPCS: 81025; 99281

== ENCOUNTER 2020-11-25 13:55 | Emergency (ER) | payer OTHER ==
[2020-11-25 14:42] LABS: #Basophils 0.1 thou/uL (0.0-0.2); #Eosinphils 0.1 thou/uL (0.0-0.7); #Lymphocytes 2.3 thou/uL (1.20-3.40); #Monocytes 0.5 thou/uL (0.11-0.59); #Neutrophils 2.7 thou/uL (1.40-6.50); %Basophils 1.1 % (0.0-1.0); %Eosinophils 1.2 % (0.0-10.0); %Lymphocytes 41.3 % (21.0-51.0); %Monocytes 8.3 % (0.0-10.0); Hemoglobin 12.2 g/dL (12.0-16.0); Mean Corpuscular HGB CONC 32.5 g/dL (32.0-36.0); Mean Corpuscular Hemoglobin 30.2 pg (27.0-31.0); Mean Corpuscular Volume 92.9 fL (78.0-98.0); Mean Platelet Volume 8.5 fL (7.4-10.4); Platelet Count 250 thou/uL (130-400); RBC Distribution Width 11.1 % (11.5-14.5); Red Blood Cell (RBC) Count 4.04 mill/uL (4.20-5.40); White Blood Cell (WBC) Count 5.7 thou/uL (4.8-10.8)
[2020-11-25 15:04] LABS: Acetaminophen Less than 6.0 mcg/mL (10.0-30.0); Alcohol Less than 10 mg/dL (Less than 10); Salicylate Less than 8.0 mg/dL (15.0-30.0)
[2020-11-25 15:05] LABS: ALT (SGPT) 10 U/L (8-55); AST (SGOT) 19 U/L (5-34); Albumin 4.6 g/dL (3.5-5.0); Alkaline Phosphatase 62 U/L (40-110); Anion Gap 13 mmol/L (10-20); BUN (Urea Nitrogen) 9 mg/dL (7.0-18.7); Bilirubin, Total 0.6 mg/dL (0.2-1.2); Calc. Creatinine Clearance 0 mL/min (70-130); Calcium 9.6 mg/dL (7.8-10.44); Carbon Dioxide 25 mmol/L (22-29); Chloride 106 mmol/L (98-107); Globulin 2.9 g/dL (2.4-3.5); Glucose 91 mg/dL (70-105); Potassium 3.7 mmol/L (3.5-5.1); Protein, Total 7.5 g/dL (6.0-8.3); Sodium 140 mmol/L (136-145)
[2020-11-25 15:12] LABS: Bacteria/HPF None Seen HPF (None Seen); Bilirubin Negative (Negative); Blood, Urine Negative (Negative); Clarity Clear (Clear); Glucose, Urine (Dipstick) Normal (Negative); Ketone, Urine Negative (Negative); Leukocyte Negative Leu/uL (Negative); Nitrite Negative (Negative); Pregnancy Test - Urine (BHCG) Negative (Negative); Pregu Control Background? CLEAR/WHITE (CLR/WHITE); Pregu Control Bar Appear? YES (CONTROL BAR); Protein, Urine (Dipstick) 30 mg/dL (Neg-Trace); RBC/HPF 0-3 HPF (0-3); Specific Gravity 1.009 (1.002-1.036); Specific Gravity, Urine 1.009 (1.002-1.036); Squamous Epithelial 0-3 HPF (0-3); Urobilinogen Normal mg/dL (Less than 2); WBC/HPF 0-3 HPF (0-3); pH, Urine 7.5 (5.0-9.0)
[2020-11-25 15:27] LABS: Amphetamine Not Detected (NotDetected); Barbiturates Screen Not Detected (NotDetected); Benzodiazepine Screen Not Detected (NotDetected); Cocaine Metabolite Screen Not Detected (NotDetected); Medtox Control Line Valid? VALID (VALID); Medtox Reader # READER 1; Methadone Not Detected (NotDetected); Methamphetamine Not Detected (NotDetected); Opiate Screen Not Detected (NotDetected); Oxycodone Screen Not Detected (NotDetected); Phencyclidine (PCP) Not Detected (NotDetected); THC/Cannabinoid Screen Not Detected (NotDetected); Tricyclic Screen Not Detected (NotDetected)
== END 2020-11-25 15:29 | disposition left against medical advice (07) ==
LOC: ERS 13:55
DX: S00.83XA Contusion of other part of head, initial encounter (principal); I10 Essential (primary) hypertension; F17.290 Nicotine dependence, other tobacco product, uncomplicated; Y09 Assault by unspecified means
CPT/HCPCS: 36415; 71045; 80053; 80306; 80307; 81003; 81015; 81025; 84484; 85025; 93005

== ENCOUNTER 2021-07-11 15:18 | Emergency (ER) | payer OTHER ==
[2021-07-11 16:01] LABS: Pregnancy Test - Urine (BHCG) Negative (Negative); Pregu Control Background? CLEAR/WHITE (CLR/WHITE); Pregu Control Bar Appear? YES (CONTROL BAR); Specific Gravity 1.008 (1.002-1.036)
== END 2021-07-11 19:23 | disposition left against medical advice (07) ==
LOC: ERS 15:18
DX: Z32.02 Encounter for pregnancy test, result negative (principal); I10 Essential (primary) hypertension; F17.200 Nicotine dependence, unspecified, uncomplicated
CPT/HCPCS: 81025; 99282

== ENCOUNTER 2021-07-14 16:28 | Emergency (ER) | payer OTHER | END 2021-07-14 18:02 | disposition home or self-care (01) | LOC: ERS 16:28 | DX: O03.9 Complete or unspecified spontaneous abortion without complication (principal); F17.200 Nicotine dependence, unspecified, uncomplicated; I10 Essential (primary) hypertension | CPT/HCPCS: 36415; 84702; 99284 ==

== ENCOUNTER 2021-09-08 03:05 | Emergency (ER) | payer OTHER | END 2021-09-08 04:20 | disposition left against medical advice (07) | LOC: ERS 03:05 | DX: Z53.21 Procedure and treatment not carried out due to patient leaving prior to being seen by health care provider (principal) ==

== ENCOUNTER 2021-10-09 14:14 | Emergency (ER) | payer OTHER | END 2021-10-09 16:00 | disposition home or self-care (01) | LOC: ERS 14:14 | DX: L91.8 Other hypertrophic disorders of the skin (principal); I10 Essential (primary) hypertension | CPT/HCPCS: 99282 ==

== ENCOUNTER 2022-01-03 18:46 | Emergency (ER) | payer OTHER | END 2022-01-03 19:15 | disposition left against medical advice (07) | LOC: ERS 18:46 | DX: Z53.21 Procedure and treatment not carried out due to patient leaving prior to being seen by health care provider (principal) ==

== ENCOUNTER 2022-05-20 08:17 | Emergency (ER) | payer OTHER ==
[2022-05-20] MEDS ORDERED: Ibuprofen 200 MG TAB ONE (10:07)
== END 2022-05-20 10:34 | disposition home or self-care (01) ==
LOC: ERS 08:17
DX: R25.2 Cramp and spasm (principal); I10 Essential (primary) hypertension
CPT/HCPCS: 99283

== ENCOUNTER 2022-08-19 09:21 | Emergency (ER) | payer OTHER ==
[2022-08-19] MEDS ORDERED: Lidocaine 1% PF 5 ML VIAL ONE ×2 (11:10→11:34)
== END 2022-08-19 12:12 | disposition home or self-care (01) ==
LOC: ERS 09:21
DX: R22.2 Localized swelling, mass and lump, trunk (principal); I10 Essential (primary) hypertension
CPT/HCPCS: 99283

== ENCOUNTER 2022-11-26 18:37 | Emergency (ER) | payer OTHER ==
[2022-11-26] MEDS ORDERED: Ketorolac Tromethamine 30 MG/ML VIAL ONE (19:31)
[2022-11-26] MEDS ORDERED: Bacitracin 1 PK ONE ×2 (19:31→20:42)
[2022-11-26] MEDS ORDERED: Boostrix 0.5 ML (Tdap) VIAL (>/=7 yrs of age) ONE (19:31)
== END 2022-11-26 20:48 | disposition home or self-care (01) ==
LOC: ERS 18:37
DX: S09.90XA Unspecified injury of head, initial encounter (principal); S50.312A Abrasion of left elbow, initial encounter; S50.311A Abrasion of right elbow, initial encounter; S80.212A Abrasion, left knee, initial encounter; S80.211A Abrasion, right knee, initial encounter; S40.212A Abrasion of left shoulder, initial encounter; I10 Essential (primary) hypertension; F17.200 Nicotine dependence, unspecified, uncomplicated; Y08.89XA Assault by other specified means, initial encounter; Z23 Encounter for immunization
CPT/HCPCS: 70450; 70486; 90471; 90715; 96372; J1885

== ENCOUNTER 2023-01-21 06:27 | Emergency (ER) | payer OTHER ==
[2023-01-21] MEDS ORDERED: Ondansetron PF 4 MG/2 ML Vial ONE (07:19)
[2023-01-21] MEDS ORDERED: Ketorolac Tromethamine 30 MG/ML VIAL ONE (07:19)
[2023-01-21 07:24] LABS: #Monocytes 0.6 thou/uL (0.11-0.59); #Neutrophils 9.5 thou/uL (1.40-6.50); %Basophils 0.2 % (0.0-1.0); %Eosinophils 0.1 % (0.0-10.0); %Lymphocytes 7.3 % (21.0-51.0); %Monocytes 5.8 % (0.0-10.0); %Neutrophils 86.3 % (42.0-75.0); Hemoglobin 11.7 g/dL (12.0-16.0); Mean Corpuscular HGB CONC 33.1 g/dL (32.0-36.0); Mean Corpuscular Hemoglobin 30.7 pg (27.0-31.0); Mean Corpuscular Volume 92.9 fl (78.0-98.0); Mean Platelet Volume 10.7 fL (7.4-10.4); Platelet Count 248 10x3/uL (130-400); RBC Distribution Width 12.5 % (11.5-14.5); Red Blood Cell (RBC) Count 3.81 mill/uL (4.20-5.40)
[2023-01-21 07:41] LABS: BHCG - Serum Negative (NEGATIVE); Pregs Control Background? CLEAR/WHITE (CLR/WHITE); Pregs Control Bar Appear? YES (CONTROL BAR)
[2023-01-21 07:50] LABS: ALT (SGPT) 7 U/L (8-55); AST (SGOT) 14 U/L (5-34); Albumin 4.5 g/dL (3.5-5.0); Alkaline Phosphatase 51 U/L (40-110); Anion Gap 12 mmol/L (10-20); BUN (Urea Nitrogen) 10 mg/dL (7.0-18.7); Bilirubin, Total 0.4 mg/dL (0.2-1.2); Calc. Creatinine Clearance 0 mL/min (70-130); Calcium 9.4 mg/dL (7.8-10.44); Carbon Dioxide 23 mmol/L (22-29); Chloride 108 mmol/L (98-107); Estimated GFR 88; Glucose 96 mg/dL (70-105); Lipase 6 U/L (8-78); Potassium 3.3 mmol/L (3.5-5.1); Protein, Total 7.5 g/dL (6.0-8.3); Sodium 140 mmol/L (136-145)
== END 2023-01-21 09:25 | disposition home or self-care (01) ==
LOC: ERS 06:27
DX: R10.811 Right upper quadrant abdominal tenderness (principal); D72.829 Elevated white blood cell count, unspecified; I10 Essential (primary) hypertension
CPT/HCPCS: 36415; 76705; 80053; 83690; 84703; 85025; 93005; 96374; 96375; J1885; J2405

== ENCOUNTER 2023-06-19 16:44 | Emergency (ER) | payer OTHER ==
[2023-06-19 19:49] LABS: Pregnancy Test - Urine (BHCG) Negative (Negative); Pregu Control Background? CLEAR/WHITE (CLR/WHITE); Pregu Control Bar Appear? YES (CONTROL BAR); Specific Gravity 1.028 (1.002-1.036)
== END 2023-06-19 20:50 | disposition home or self-care (01) ==
LOC: ERS 16:44
DX: Z32.02 Encounter for pregnancy test, result negative (principal)
CPT/HCPCS: 81025; 99282

== ENCOUNTER 2023-09-17 01:21 | Emergency (ER) | payer OTHER ==
[2023-09-17] MEDS ORDERED: Acetaminophen 500 MG TAB ONE (02:00)
== END 2023-09-17 02:40 | disposition left against medical advice (07) ==
LOC: ERS 01:21
DX: O13.9 Gestational [pregnancy-induced] hypertension without significant proteinuria, unspecified trimester (principal); O24.419 Gestational diabetes mellitus in pregnancy, unspecified control; Z3A.01 Less than 8 weeks gestation of pregnancy
CPT/HCPCS: 99284

== ENCOUNTER 2024-05-17 12:44 | Emergency (ER) | payer OTHER ==
[2024-05-17 14:27] LABS: Pregnancy Test - Urine (BHCG) Negative (Negative); Pregu Control Background? CLEAR/WHITE (CLR/WHITE); Pregu Control Bar Appear? YES (CONTROL BAR)
[2024-05-17 14:34] LABS: Specific Gravity 1.022 (1.002-1.036)
[2024-05-17] MEDS ORDERED: Ketorolac Tromethamine 30 MG (1 mL) VIAL ONE (15:31)
== END 2024-05-17 15:45 | disposition home or self-care (01) ==
LOC: ERS 12:44
DX: S02.5XXA Fracture of tooth (traumatic), initial encounter for closed fracture (principal); K02.9 Dental caries, unspecified; E11.9 Type 2 diabetes mellitus without complications; I10 Essential (primary) hypertension; X58.XXXA Exposure to other specified factors, initial encounter
CPT/HCPCS: 81025; 96372; 99283; J1885

== ENCOUNTER 2024-06-23 19:21 | Emergency (ER) | payer OTHER ==
[2024-06-23 20:27] LABS: Pregnancy Test - Urine (BHCG) Negative (Negative); Pregu Control Background? CLEAR/WHITE (CLR/WHITE); Pregu Control Bar Appear? YES (CONTROL BAR); Specific Gravity 1.032 (1.002-1.036)
[2024-06-23 20:29] LABS: Amphetamine Not Detected (NotDetected); Barbiturates Screen Not Detected (NotDetected); Benzodiazepine Screen Not Detected (NotDetected); Cocaine Metabolite Screen Not Detected (NotDetected); Methadone Not Detected (NotDetected); Methamphetamine Not Detected (NotDetected); Opiate Screen Not Detected (NotDetected); Oxycodone Screen Not Detected (NotDetected); Phencyclidine (PCP) Not Detected (NotDetected); THC/Cannabinoid Screen Not Detected (NotDetected); Tricyclic Screen Not Detected (NotDetected)
[2024-06-23 20:38] LABS: Bilirubin Negative (Negative); Blood, Urine 3+ (Negative); CAUTI Indications for Culture Dysuria,urgency,freq; Clarity Clear (Clear); Glucose, Urine (Dipstick) Normal (Negative); Ketone, Urine 10 mg/dL (Negative); Leukocyte 25 Leu/uL (Negative); Nitrite Negative (Negative); Protein, Urine (Dipstick) 30 mg/dL (Neg-Trace); RBC/HPF Greater than 50 HPF (0-3); Specific Gravity, Urine 1.032 (1.002-1.036); Urobilinogen 6 mg/dL (Less than 2); pH, Urine 5.5 (5.0-9.0)
[2024-06-23 20:55] LABS: Bacteria/HPF Rare-Few HPF (None Seen)
[2024-06-23 20:57] LABS: Urine Culture Reflex No No
== END 2024-06-23 21:44 | disposition home or self-care (01) ==
LOC: ERS 19:21
DX: N39.0 Urinary tract infection, site not specified (principal); E11.9 Type 2 diabetes mellitus without complications; I10 Essential (primary) hypertension
CPT/HCPCS: 80306; 81001; 81025; 99283

== ENCOUNTER 2024-08-17 21:34 | Emergency (ER) | payer OTHER ==
[2024-08-17 22:03] LABS: #Basophils 0.03 10x3/uL (0.0-0.2); %Basophils 0.4 % (0.0-1.0); %Eosinophils 4.3 % (0.0-10.0); %Lymphocytes 33.5 % (21.0-51.0); %Monocytes 6.6 % (0.0-10.0); %Neutrophils 54.9 % (42.0-75.0); Hematocrit 32.3 % (36.0-47.0); Hemoglobin 10.6 g/dL (12.0-16.0); Mean Corpuscular HGB CONC 32.8 g/dL (32.0-36.0); Mean Corpuscular Hemoglobin 30.1 pg (27.0-31.0); Mean Corpuscular Volume 91.8 fL (78.0-98.0); Mean Platelet Volume 9.9 fL (7.4-10.4); Platelet Count 238 10x3/uL (130-400); Red Blood Cell (RBC) Count 3.52 mill/uL (4.20-5.40)
[2024-08-17 22:13] LABS: BHCG - Serum Negative (NEGATIVE); Pregs Control Background? CLEAR/WHITE (CLR/WHITE); Pregs Control Bar Appear? YES (CONTROL BAR)
[2024-08-17 22:19] LABS: ALT (SGPT) 25 U/L (8-55); AST (SGOT) 27 U/L (5-34); Albumin 4.2 g/dL (3.5-5.0); Alkaline Phosphatase 67 U/L (40-110); Anion Gap 14 mmol/L (10-20); BUN (Urea Nitrogen) 18 mg/dL (7.0-18.7); Bilirubin, Total 0.2 mg/dL (0.2-1.2); Calc. Creatinine Clearance 0 mL/min (70-130); Calcium 9.2 mg/dL (7.8-10.44); Carbon Dioxide 21 mmol/L (22-29); Chloride 110 mmol/L (98-107); Estimated GFR 93; Globulin 3.5 g/dL (2.4-3.5); Glucose 95 mg/dL (70-105); Potassium 4.1 mmol/L (3.5-5.1); Protein, Total 7.7 g/dL (6.0-8.3); Sodium 141 mmol/L (136-145)
== END 2024-08-17 23:45 | disposition home or self-care (01) ==
LOC: ERS 21:34 → EEVIPCON 21:34 → ERS 23:45
DX: D64.9 Anemia, unspecified (principal); E11.9 Type 2 diabetes mellitus without complications; I10 Essential (primary) hypertension
CPT/HCPCS: 36415; 80053; 84443; 84703; 85025; 99283

== ENCOUNTER 2025-03-11 22:16 | Emergency (ER) | payer OTHER ==
[2025-03-12] MEDS ORDERED: Ketorolac Tromethamine 30 MG (1 mL) VIAL ONE (01:31)
[2025-03-12] MEDS ORDERED: Ondansetron PF 4 MG/2 ML Vial ONE (01:32)
[2025-03-12 01:44] LABS: #Basophils 0.03 10x3/uL (0.0-0.2); #Eosinophils 0.03 10x3/uL (0.0-0.7); #Monocytes 0.49 10x3/uL (0.11-0.59); #Neutrophils 4.03 10x3/uL (1.40-6.50); %Basophils 0.4 % (0.0-1.0); %Eosinophils 0.4 % (0.0-10.0); %Lymphocytes 37.8 % (21.0-51.0); %Monocytes 6.6 % (0.0-10.0); %Neutrophils 54.7 % (42.0-75.0); Hematocrit 36.9 % (36.0-47.0); Hemoglobin 12.2 g/dL (12.0-16.0); Mean Corpuscular Hemoglobin 29.5 pg (27.0-31.0); Mean Corpuscular Volume 89.1 fL (78.0-98.0); Platelet Count 297 10x3/uL (130-400); Red Blood Cell (RBC) Count 4.14 mill/uL (4.20-5.40); White Blood Cell (WBC) Count 7.38 10x3/uL (4.8-10.8)
[2025-03-12 02:07] LABS: ALT (SGPT) 16 U/L (Less than 34); AST (SGOT) 21 U/L (11-34); Albumin 4.6 g/dL (3.1-4.5); Alkaline Phosphatase 50 U/L (40-110); Anion Gap 15 mmol/L (10-20); BUN (Urea Nitrogen) 13 mg/dL (7.0-18.7); Bilirubin, Total 0.5 mg/dL (0.3-1.2); Calc. Creatinine Clearance 0 mL/min (70-130); Calcium 9.5 mg/dL (7.8-10.44); Carbon Dioxide 20 mmol/L (22-29); Chloride 107 mmol/L (98-107); Globulin 3.3 g/dL (2.4-3.5); Glucose 94 mg/dL (70-105); Potassium 3.8 mmol/L (3.5-5.1); Sodium 138 mmol/L (136-145)
[2025-03-12 02:09] LABS: BHCG - Serum Negative (NEGATIVE); Pregs Control Background? CLEAR/WHITE (CLR/WHITE); Pregs Control Bar Appear? YES (CONTROL BAR)
== END 2025-03-12 02:43 | disposition home or self-care (01) ==
LOC: ERS 22:16
DX: K04.7 Periapical abscess without sinus (principal); I10 Essential (primary) hypertension; E11.9 Type 2 diabetes mellitus without complications
CPT/HCPCS: 36415; 80053; 83605; 84703; 85025; 87040; 96374; 96375; J1885; J2270; J2405

== ENCOUNTER 2025-03-17 20:15 | Emergency (ER) | payer OTHER | END 2025-03-17 21:20 | disposition home or self-care (01) | LOC: ERS 20:15 | DX: K04.7 Periapical abscess without sinus (principal); I10 Essential (primary) hypertension; E11.9 Type 2 diabetes mellitus without complications; F17.290 Nicotine dependence, other tobacco product, uncomplicated | CPT/HCPCS: 99282 ==

== ENCOUNTER 2025-05-12 15:17 | Emergency (ER) | payer OTHER | END 2025-05-12 18:27 | disposition home or self-care (01) | LOC: ERS 15:17 | DX: R05.9 Cough, unspecified (principal); I10 Essential (primary) hypertension; E11.9 Type 2 diabetes mellitus without complications; F17.290 Nicotine dependence, other tobacco product, uncomplicated | CPT/HCPCS: 87428; 99283 ==

== ENCOUNTER 2025-05-20 23:15 | Emergency (ER) | payer OTHER ==
[2025-05-21] MEDS ORDERED: Ibuprofen 200 MG TAB ONE (03:12)
== END 2025-05-21 03:15 | disposition home or self-care (01) ==
LOC: ERS 23:15
DX: I83.90 Asymptomatic varicose veins of unspecified lower extremity (principal); M79.672 Pain in left foot; M79.671 Pain in right foot; I10 Essential (primary) hypertension; E11.9 Type 2 diabetes mellitus without complications; F17.290 Nicotine dependence, other tobacco product, uncomplicated
CPT/HCPCS: 99283